=== PATIENT | female | born 1945 | race Caucasian/White ===

== ENCOUNTER 2019-09-10 21:17 | Inpatient (IN) | payer MEDICARE, MEDICAID, SELFPAY ==
[2019-09-11] VITALS (11 sets, daily range): BP systolic 96–138; BP diastolic 48–69; PULSE 84–111; RESP 16–22; TEMP 36.4–37.3; O2SAT 91–98; BMI 32.3
--- NOTE | 2019-09-11 01:44 | ECG_ITS ---
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
[2019-09-11 01:56] LABS: Add RBC Morph No
[2019-09-11 02:03] LABS: Basophils % 0.1 %; Hematocrit 35.1 % (37.0-47.0); Hemoglobin 11.3 g/dL (11.5-15.3); Lymphocytes # 0.4 10^3/uL (0.8-4.8); Lymphocytes % 2.6 %; Mean Corpuscular HGB Conc 32.2 g/dL (30.0-36.0); Mean Corpuscular Hemoglobin 27.5 pg (28.0-34.0); Mean Corpuscular Volume 85.4 fL (81-99); Mean Platelet Volume 10.5 fL (7.4-10.4); Monocytes # 0.5 10^3/uL (0.2-0.9); Monocytes % 3.1 %; Neutrophils # 14.2 10^3/uL (1.8-7.7); Neutrophils % 92.1 %; Nucleated Red Blood Cells % 0 %; Platelet Count 168 10^3/cmm (130-400); Red Blood Count 4.11 10^6/uL (4.1-5.3); Red Cell Distribution Width 15.2 % (12.1-15.1); White Blood Count 15.4 10^3/uL (4.0-10.0)
[2019-09-11 02:13] LABS: INR 1.71 (0.8-1.2)
[2019-09-11 02:21] LABS: Anion Gap 16.2 (5-19); Blood Urea Nitrogen 24 mg/dL (8-23); Calcium 9.3 mg/Dl (8.8-10.2); Carbon Dioxide 23 mmol/L (22-29); Chloride 99 mmol/L (98-107); Potassium 3.2 mmol/L (3.5-5.1); Sodium 135 mmol/L (136-145)
[2019-09-11] MEDS: sodium chlor 0.9% + KCl 20 mEq 20 MEQ/1,000 ML BAG 30 MEQ IV (02:21)
[2019-09-11 02:23] LABS: Troponin T (5th) Once 22 ng/mL (0-10)
[2019-09-11] MEDS: cefTRIAXone 1,000 MG in sodium chloride 0.9% (plus) 50 ML 100 MG IV (02:31)
[2019-09-11 02:38] LABS: Glucose 228 mg/dL (74-106)
[2019-09-11 02:40] LABS: Slide Review Slide Review Perform
[2019-09-11 02:49] LABS: Lactic Acid 2.7 mmol/L (0.5-2.2)
[2019-09-11 06:09] LABS: ABG PCO2 40.9 mmHg (35-45); ABG PH Result 7.41 (7.35-7.45); Arterial Blood Gas Hematocrit 36.1 % (37-47); Base Excess ABG 1.2 mmol/L (-2.0-2.0); Blood Gas Allen Test Pos; Blood Gas Sample Site Radial, right; Blood Gas Sample Type Arterial; PO2 ABG 84.5 mmHg (80.0-100.0)
--- NOTE | 2019-09-11 07:00 | USCV_ITS ---
Wanda Santiago Exam Date: 09/11/2019 08:52 Ordering Phys: Zoë Colon MD Ag 74 Gender: F Exam Location: [facility] [place] Technologist: Yeni Steele ms e: Indication: PE HISTORY: History DVT left popliteal/peroneal according to patient PROCEDURES: Bilaterally, the common femoral, superficial femoral, profunda femoral, popliteal, posterior tibial, greater saphenous veins, and the peroneal trunk were identified and interrogated in the sta ndard fashion. FINDINGS: ? chronic non obstructive thrombus in left popliteal and peroneal. All vessels com press normally with normal augmentation. CONCLUSIONS No evidence of acute left lower extremity DVT. Evidence of chronic non-obstructive thrombus left popliteal and peroneal No evidence of right lower extremity DVT. Ian Briseno MD (Electronically Signed) Final Date: 11 September 2019 10:59 S
[2019-09-11] MEDS: predniSONE 20 mg Tablet 40 MG PO (08:13)
[2019-09-11] MEDS: azithromycin 250 mg Tablet 500 MG PO (08:13)
[2019-09-11] MEDS: apixaban 5 mg Tablet 10 MG PO ×2 (08:13→17:21)
[2019-09-11] MEDS: metoprolol tartrate 50 mg Tablet PO ×2 (08:17→17:21)
[2019-09-11] MEDS: ipratropium-albuterol 3 mL Neb INHALATION ×4 (08:57→20:24)
--- NOTE | 2019-09-11 09:30 | PC.PHAR ---
VERBAL ORDER PER Pinky LEIVA TO CHANGE NEURONTIN 50MG BID TO 100MG BID
[2019-09-11 12:31] LABS: Glucose Point of Care 202 mg/dL (70-110)
[2019-09-11 12:44] LABS: Oxygen Device NC
[2019-09-11 12:45] LABS: Blood Gas Drawn By VOSSA
--- NOTE | 2019-09-11 16:45 | PM.PN ---
Subjective Subjective: Interval history: Wanda reports she is feeling much better than she was on admission. She reports she is less short of breath. Her history and physical was reviewed in detail. Vitals/I&O/Wt Last Vital Signs Temp 98.4 F 09/11/19 15:44 Pulse 88 09/11/19 15:44 Resp 18 09/11/19 15:44 BP 110/68 09/11/19 15:44 Pulse Ox 98 09/11/19 15:44 09/11/19 09/11/19 09/11/19 06:59 14:59 22:59 Intake Total 158 / 158 360 / 360 Balance 158 / 158 360 / 360 Weight last 48 hrs Weight 85.502 kg Weight 85.502 kg Physical Exam Narrative: EXAM NARRATIVE: General exam is a frail-appearing white female in no apparent distress Cardiovascular regular in rhythm without murmur Lungs bilateral diffuse expiratory wheezes Abdomen protuberant obese with positive bowel sounds Extremities trace edema bilaterally. Data Labs: Other Labs: All Labs last 24 hrs except CBC/BMP 09/10/19 09/10/19 09/10/19 19:47 19:47 19:47 RBC 4.96 MCV 82.3 MCH 26.6 L MCHC 32.4 RDW 15.2 H MPV 11.6 H Neut % (Auto) 92.2 Lymph % (Auto) 2.9 [place] % (Auto) 3.5 Eos % (Auto) 0.1 Baso % (Auto) 0.1 Neut # (Auto) 16.1 H Lymph # (Auto) 0.5 L [place] # (Auto) 0.6 Eos # (Auto) 0.0 Baso # (Auto) 0.0 Nucleated RBC % (a uto) 0 Nucleated RBCs # 0.0 PT INR Specimen Type Sample Site ABG pH ABG pCO2 ABG pO2 ABG HCO3 ABG Base Excess Sushil Test Hematocrit O2 Delivery Device O2 Liters/Min Specimen Drawn By Lay Out Worker ID POC Glucose Random Glucose 165 H Lactic Acid 3.1 H Calcium 10.3 H Total Bilirubin 2.0 H AST 24 ALT 14 Alkaline Phosphata se 80 Troponin T Gen 5 n g/L Troponin T Baselin e 28.63 H NT-Pro-B Natriuret Pep 1613 H Total Protein 8.1 Albumin 4.0 Globulin 4.1 Lipase 6 L Urine Color Urine Appearance Urine pH Ur Specific Gravit y Urine Protein Urine Glucose (UA) Urine Ketones Urine Occult Blood Urine Nitrite Urine Bilirubin Urine Urobilinogen Ur Leukocyte Liliya ase Urine RBC Urine WBC Ur Squamous Epith Cells Amorphous Sediment Urine Bacteria Fine Granular Cast s Influenza Type A A g Influenza Type B A g 09/10/19 09/10/19 09/10/19 19:47 20:05 21:24 RBC MCV MCH MCHC RDW MPV Neut % (Auto) Lymph % (Auto) [place] % (Auto) Eos % (Auto) Baso % (Auto) Neut # (Auto) Lymph # (Auto) [place] # (Auto) Eos # (Auto) Baso # (Auto) Nucleated RBC % (a uto) Nucleated RBCs # PT 18.8 H INR 1.52 H Specimen Type Sample Site ABG pH ABG pCO2 ABG pO2 ABG HCO3 ABG Base Excess Sushil Test Hematocrit O2 Delivery Device O2 Liters/Min Specimen Drawn By Lay Out Worker ID POC Glucose Random Glucose Lactic Acid Calcium Total Bilirubin AST ALT Alkaline Phosphata se Troponin T Gen 5 n g/L Troponin T Baselin e NT-Pro-B Natriuret Pep Total Protein Albumin Globulin Lipase Urine Color DARK YELLOW Urine Appearance HAZY Urine pH 5 Ur Specific Gravit y 1.020 Urine Protein 1+ H Urine Glucose (UA) NORM Urine Ketones 1+ H Urine Occult Blood 3+ H Urine Nitrite NEG Urine Bilirubin 1+ H Urine Urobilinogen 1 H Ur Leukocyte Liliya ase NEG Urine RBC 15-25 H Urine WBC 0-4 H Ur Squamous Epith Cells 10-15 H Amorphous Sediment 1+ Urine Bacteria 2+ H Fine Granular Cast s 0-4 H Influenza Type A A g NEGATIVE Influenza Type B A g NEGATIVE 09/11/19 09/11/19 09/11/19 01:50 01:50 01:50 RBC 4.11 MCV 85.4 MCH 27.5 L MCHC 32.2 RDW 15.2 H MPV 10.5 H Neut % (Auto) 92.1 Lymph % (Auto) 2.6 [place] % (Auto) 3.1 Eos % (Auto) Baso % (Auto) 0.1 Neut # (Auto) 14.2 H Lymph # (Auto) 0.4 L [place] # (Auto) 0.5 Eos # (Auto) 0.0 Baso # (Auto) 0.0 Nucleated RBC % (a uto) 0 Nucleated RBCs # 0.0 PT INR Specimen Type Sample Site ABG pH ABG pCO2 ABG pO2 ABG HCO3 ABG Base Excess Sushil Test Hematocrit O2 Delivery Device O2 Liters/Min Specimen Drawn By Lay Out Worker ID POC Glucose Random Glucose Lactic Acid Calcium 9.3 Total Bilirubin AST ALT Alkaline Phosphata se Troponin T Gen 5 n g/L 22 H Troponin T Baselin e NT-Pro-B Natriuret Pep Total Protein Albumin Globulin Lipase Urine Color Urine Appearance Urine pH Ur Specific Gravit y Urine Protein Urine Glucose (UA) Urine Ketones Urine Occult Blood Urine Nitrite Urine Bilirubin Urine Urobilinogen Ur Leukocyte Liliya ase Urine RBC Urine WBC Ur Squamous Epith Cells Amorphous Sediment Urine Bacteria Fine Granular Cast s Influenza Type A A g Influenza Type B A g 09/11/19 09/11/19 09/11/19 01:50 01:50 05:56 RBC MCV MCH MCHC RDW MPV Neut % (Auto) Lymph % (Auto) [place] % (Auto) Eos % (Auto) Baso % (Auto) Neut # (Auto) Lymph # (Auto) [place] # (Auto) Eos # (Auto) Baso # (Auto) Nucleated RBC % (a uto) Nucleated RBCs # PT 20.70 H INR 1.71 H Specimen Type Arterial Sample Site Radial, right ABG pH 7.41 ABG pCO2 40.9 ABG pO2 84.5 ABG HCO3 26.0 ABG Base Excess 1.2 Sushil Test Pos Hematocrit 36.1 L O2 Delivery Device Nc O2 Liters/Min 6.0 Specimen Drawn By Vossa Lay Out Worker ID vossa POC Glucose Random Glucose Lactic Acid 2.7 H Calcium Total Bilirubin AST ALT Alkaline Phosphata se Troponin T Gen 5 n g/L Troponin T Baselin e NT-Pro-B Natriuret Pep Total Protein Albumin Globulin Lipase Urine Color Urine Appearance Urine pH Ur Specific Gravit y Urine Protein Urine Glucose (UA) Urine Ketones Urine Occult Blood Urine Nitrite Urine Bilirubin Urine Urobilinogen Ur Leukocyte Liliya ase Urine RBC Urine WBC Ur Squamous Epith Cells Amorphous Sediment Urine Bacteria Fine Granular Cast s Influenza Type A A g Influenza Type B A g 09/11/19 11:29 RBC MCV MCH MCHC RDW MPV Neut % (Auto) Lymph % (Auto) [place] % (Auto) Eos % (Auto) Baso % (Auto) Neut # (Auto) Lymph # (Auto) [place] # (Auto) Eos # (Auto) Baso # (Auto) Nucleated RBC % (a uto) Nucleated RBCs # PT INR Specimen Type Sample Site ABG pH ABG pCO2 ABG pO2 ABG HCO3 ABG Base Excess Sushil Test Hematocrit O2 Delivery Device O2 Liters/Min Specimen Drawn By Lay Out Worker ID POC Glucose 202 Random Glucose Lactic Acid Calcium Total Bilirubin AST ALT Alkaline Phosphata se Troponin T Gen 5 n g/L Troponin T Baselin e NT-Pro-B Natriuret Pep Total Protein Albumin Globulin Lipase Urine Color Urine Appearance Urine pH Ur Specific Gravit y Urine Protein Urine Glucose (UA) Urine Ketones Urine Occult Blood Urine Nitrite Urine Bilirubin Urine Urobilinogen Ur Leukocyte Liliya ase Urine RBC Urine WBC Ur Squamous Epith Cells Amorphous Sediment Urine Bacteria Fine Granular Cast s Influenza Type A A g Influenza Type B A g A&P Assessment and plan (1) COPD with acute exacerbation: Patient already improving. On steroids, pulmonary toilet, IV antibiotics. Possibility of pneumonia exists. Status: Acute Code(s): J44.1 - Chronic obstructive pulmonary disease with (acute) exacerbation (2) Sepsis: Status: Ruled-out Code(s): A41.9 - Sepsis, unspecified organism (3) Pulmonary embolism: Coumadin discontinued. Placed on Eliquis, treatment dose Status: Acute Code(s): I26.99 - Other pulmonary embolism without acute cor pulmonale (4) Hypertension: Stable Status: Acute Code(s): I10 - Essential (primary) hypertension (5) Hypokalemia: Supplemented this morning Status: Acute Code(s): E87.6 - Hypokalemia Attestations Medical Necessity Statement*: Needs continued hospitalization secondary to COPD exacerbation requiring steroids, pulmonary toilet, IV antibiotics Coding Level of Care Code Acute Manager Track for [facility] F[facility] Diagnoses COPD with acute exacerbation J44.1 Sepsis A41.9 Pulmonary embolism I26.99 Hypertension I10 Hypokalemia E87.6
[2019-09-11] MEDS: gabapentin 100 mg Capsule PO (17:21)
[2019-09-11 17:54] LABS: Glucose Point of Care 221 mg/dL (70-110)
[2019-09-11 21:44] LABS: Glucose Point of Care 186 mg/dL (70-110)
[2019-09-11] MEDS: atorvastatin 40 mg Tablet PO (21:45)
[2019-09-12] VITALS (14 sets, daily range): BP systolic 100–142; BP diastolic 63–73; PULSE 73–102; RESP 16–24; TEMP 36.3–36.9; O2SAT 92–98
[2019-09-12] MEDS: cefTRIAXone 1,000 MG in sodium chloride 0.9% (plus) 50 ML 100 MG IV (00:45)
[2019-09-12] MEDS: ipratropium-albuterol 3 mL Neb INHALATION ×3 (01:54→20:49)
[2019-09-12] MEDS: sodium chlor 0.9% + KCl 20 mEq 20 MEQ/1,000 ML BAG 30 MEQ IV (02:17)
[2019-09-12 05:44] LABS: Basophils % 0.1 %; Hematocrit 34.3 % (37.0-47.0); Hemoglobin 10.8 g/dL (11.5-15.3); Lymphocytes # 0.5 10^3/uL (0.8-4.8); Lymphocytes % 3.6 %; Mean Corpuscular HGB Conc 31.5 g/dL (30.0-36.0); Mean Corpuscular Hemoglobin 27.1 pg (28.0-34.0); Mean Corpuscular Volume 86.2 fL (81-99); Mean Platelet Volume 11.5 fL (7.4-10.4); Monocytes # 0.7 10^3/uL (0.2-0.9); Monocytes % 4.8 %; Neutrophils # 12.8 10^3/uL (1.8-7.7); Nucleated Red Blood Cells % 0 %; Platelet Count 181 10^3/cmm (130-400); Red Blood Count 3.98 10^6/uL (4.1-5.3); Red Cell Distribution Width 15.1 % (12.1-15.1); White Blood Count 14.3 10^3/uL (4.0-10.0)
[2019-09-12 05:46] LABS: Add RBC Morph No
[2019-09-12 06:10] LABS: Blood Urea Nitrogen 36 mg/dL (8-23); Calcium 9.4 mg/Dl (8.8-10.2); Carbon Dioxide 24 mmol/L (22-29); Chloride 102 mmol/L (98-107); Glucose 166 mg/dL (74-106); Sodium 139 mmol/L (136-145)
[2019-09-12 06:52] LABS: Glucose Point of Care 168 mg/dL (70-110)
[2019-09-12] MEDS: gabapentin 100 mg Capsule PO ×2 (08:31→18:03)
[2019-09-12] MEDS: apixaban 5 mg Tablet 10 MG PO ×2 (08:31→18:03)
[2019-09-12] MEDS: metoprolol tartrate 50 mg Tablet PO ×2 (08:32→18:03)
[2019-09-12] MEDS: azithromycin 250 mg Tablet 500 MG PO (08:32)
[2019-09-12] MEDS: predniSONE 20 mg Tablet 40 MG PO (08:32)
[2019-09-12 11:09] LABS: Glucose Point of Care 182 mg/dL (70-110)
--- NOTE | 2019-09-12 11:20 | P.PN_ITS ---
Subjective Subjective: Interval history: Wanda reports she is feeling better. She is still wheezing some. No vomiting. No chest pain. Overall improving. Medications: Reviewed: Yes Vitals/I&O/Wt Last Vital Signs Temp 97.7 F 09/12/19 11:13 Pulse 74 09/12/19 11:13 Resp 22 H 09/12/19 11:13 BP 113/70 09/12/19 11:13 Pulse Ox 96 09/12/19 11:13 09/11/19 09/12/19 09/12/19 22:59 06:59 14:59 Intake Total 981 / 1341 480 / 480 Output Total 350 / 350 Balance 631 / 991 480 / 480 Weight last 48 hrs Weight 89.539 kg Weight 89.04 kg Weight 85.502 kg Weight 85.502 kg Physical Exam Narrative: EXAM NARRATIVE: General exam no apparent distress Cardiovascular regular rate and rhythm without murmur Lungs diminished breath sounds bilaterally. No wheezes or crackles Abdomen is soft with positive bowel sounds Extremities no cyanosis clubbing or edema. A&P Assessment and plan (1) COPD with acute exacerbation: Patient already improving. On steroids, pulmonary toilet, IV antibiotics. Possibility of pneumonia exists. Continues to improve. Continue IV antibiotics. Wean oxygen as tolerated. Status: Acute Code(s): J44.1 - Chronic obstructive pulmonary disease with (acute) exacerbation (2) Sepsis: Resolved. White blood cell count improved Status: Ruled-out Code(s): A41.9 - Sepsis, unspecified organism (3) Pulmonary embolism: Coumadin discontinued. Placed on Eliquis, treatment dose. She appears stable Status: Acute Code(s): I26.99 - Other pulmonary embolism without acute cor pulmonale (4) Hypertension: Stable Status: Acute Code(s): I10 - Essential (primary) hypertension (5) Hypokalemia: Normal this morning Status: Acute Code(s): E87.6 - Hypokalemia Attestations Medical Necessity Statement*: Needs continued hospital stay for pulmonary toilet, frequent nebs. Likely discharge tomorrow. Coding Level of Care Code Acute Configuration Consultant for [facility] Diagnoses COPD with acute exacerbation J44.1 Sepsis A41.9 Pulmonary embolism I26.99 Hypertension I10 Hypokalemia E87.6
[2019-09-12] MEDS: FUROsemide 40 mg Tablet PO (13:37)
[2019-09-12 16:21] LABS: Glucose Point of Care 183 mg/dL (70-110)
[2019-09-12] MEDS: atorvastatin 40 mg Tablet PO (20:53)
[2019-09-12 21:07] LABS: Glucose Point of Care 187 mg/dL (70-110)
[2019-09-13] VITALS (13 sets, daily range): BP systolic 118–149; BP diastolic 69–79; PULSE 75–87; RESP 16–24; TEMP 36.4–36.6; O2SAT 92–97
[2019-09-13] MEDS: ipratropium-albuterol 3 mL Neb INHALATION ×4 (00:47→10:44)
[2019-09-13] MEDS: cefTRIAXone 1,000 MG in sodium chloride 0.9% (plus) 50 ML 100 MG IV (04:28)
[2019-09-13 07:47] LABS: Anion Gap 12.4 (5-19); Blood Urea Nitrogen 29 mg/dL (8-23); Calcium 9.2 mg/Dl (8.8-10.2); Carbon Dioxide 24 mmol/L (22-29); Chloride 106 mmol/L (98-107); Glucose 135 mg/dL (74-106); Potassium 3.4 mmol/L (3.5-5.1); Sodium 139 mmol/L (136-145)
[2019-09-13 08:55] LABS: Glucose Point of Care 136 mg/dL (70-110)
[2019-09-13] MEDS: apixaban 5 mg Tablet 10 MG PO (09:38)
[2019-09-13] MEDS: FUROsemide 40 mg Tablet PO (09:38)
[2019-09-13] MEDS: gabapentin 100 mg Capsule PO (09:38)
[2019-09-13] MEDS: azithromycin 250 mg Tablet 500 MG PO (09:38)
[2019-09-13] MEDS: metoprolol tartrate 50 mg Tablet PO (09:39)
[2019-09-13] MEDS: predniSONE 20 mg Tablet 40 MG PO (09:39)
--- NOTE | 2019-09-13 10:27 | P.DS_ITS ---
Discharge Providers Date of Admission: 09/10/19 21:17 Date of Discharge: 09/13/19 Attending Provider at Admission: Antoinette Colon MD Attending Provider at Discharge: Brooks Vargas MD Primary Care Provider: Carmella Navarrete-Philomena Diagnoses at Discharge Discharge Diagnosis (1) COPD with acute exacerbation: Status: Acute Problem details: Significantly improved. Back to baseline home oxygen (2) Sepsis: Status: Ruled-out (3) Pulmonary embolism: Status: Acute Problem details: Discontinued Coumadin. She was not therapeutic. On Eliquis, treatment dose to transition to appropriate maintenance dose (4) Hypertension: Status: Acute Problem details: Controlled (5) Hypokalemia: Status: Acute Problem details: Supplemented Reason for Visit Reason for Visit: Reason For Visit: Acute On Chronic Resp Distress, Copd, Hospital Course Hospital Course: Wanda presented to the hospital short of breath. She was found to have an acute COPD exacerbation. CTA of her lungs also demonstrated pulmonary embolism. She was not therapeutic on her Coumadin when she came in. There was question of pneumonia as well. She was placed on IV antibiotics consisting of Rocephin and azithromycin. Coumadin was discontinued and she was placed on Eliquis treatment dose. She was given steroids, and pulmonary toilet. Over the course of her hospital stay she remained afebrile. She gradually improved and oxygen weaned down to her baseline. By time of discharge she reported her breathing was back to baseline. Physical Exam Narrative: EXAM NARRATIVE: General exam no apparent distress Cardiovascular regular in rhythm without murmur Lungs a few faint expiratory wheezes Abdomen is soft with positive bowel sounds Extremities no cyanosis clubbing or edema Discharge Data Data Completed and Pending: Completed Studies During Hospitalization Category [place] [id number] Routin e Ultrasound 09/11/19 07:00 Completed Pending at discharge Category Date Time Status CV echo complete* [id number] Routine Ultrasound 09/11/19 07:00 Taken Labs from last 24 hours 09/13/19 09/13/19 09/12/19 07:12 06:26 21:03 Sodium 139 Potassium 3.4 L Chloride 106 Carbon Dioxide 24 Anion Gap 12.4 BUN 29 H Creatinine 1.3 H Glucose 135 H POC Glucose 136 187 Calcium 9.2 09/12/19 09/12/19 16:06 11:02 Sodium Potassium Chloride Carbon Dioxide Anion Gap BUN Creatinine Glucose POC Glucose 183 182 Calcium Vitals: Last Vital Signs Temp 97.6 F 09/13/19 07:32 Pulse 85 09/13/19 07:32 Resp 18 09/13/19 07:32 BP 118/69 09/13/19 07:32 Pulse Ox 96 09/13/19 07:32 Discharge Plan Discharge Patient Disposition: Home Health Service Condition: Stable Prescriptions: New Eliquis 5 mg Tablet 10 mg PO BID Qty: 70 RF: 0 prednisone 20 mg Tablet 40 mg PO DAILY Qty: 6 RF: 0 cefuroxime axetil 500 mg tablet 500 mg PO BID 7 Days Qty: 14 RF: 0 fluticasone propion-salmeterol [Advair Diskus] 500-50 mcg/dose blister with device 1 inh INHALATION BID Qty: 60 RF: 0 ipratropium-albuterol 0.5 mg-3 mg(2.5 mg base)/3 mL solution for nebulization 3 ml INHALATION Q6H PRN (Reason: shortness of breath or wheezing) Qty: 180 RF: 0 Continued Vitamin D2 1.25 MG tablet 1.25 mg PO DAILY RF: 0 atorvastatin 40 mg Tablet 40 mg PO DAILY RF: 0 furosemide 40 mg Tablet 40 mg PO DAILY RF: 0 gabapentin 100 mg Capsule 100 mg PO TID RF: 0 fluticasone propionate 50 mcg/actuation [place],Suspension 2 spray INTRANASAL DAILY RF: 0 metoprolol tartrate 50 mg Tablet 50 mg PO DAILY RF: 0 Discontinued warfarin 4 mg Tablet 4 mg PO QMWF RF: 0 warfarin 2 mg Tablet 2 mg PO [id number] RF: 0 Discharge Orders: Discharge Order (Routine); Ordered 09/13/19 Ordered By: Brooks Vargas Referrals: Carmella Navarrete FNP-C [Primary Care Provider] - 4-7 days Discharge Diet: Cardiac Discharge Activity: Resume usual activity Activity Restrictions/Additional Instructions: Resume your usual home oxygen at 3 L. Visit with your primary care provider Monday or Monday. Note that your Eliquis dose is 10 mg twice daily for 5 days and then reduce dose to 5 mg twice daily. Discharge Attestations Time Spent in Discharge Care*: greater than 30 min Quality Metrics Clinical Quality Measures During this hospital stay, did patient experience: VTE Contraindication to Overlap Therapy: Overlap treatment not indicated VTE Discharge Education: Education about treatment options/disease process Coding Level of Care Code Acute Division Roadmaster for [facility] Diagnoses COPD with acute exacerbation J44.1 Sepsis A41.9 Pulmonary embolism I26.99 Hypertension I10 Hypokalemia E87.6
[2019-09-13 11:25] LABS: Glucose Point of Care 151 mg/dL (70-110)
== END 2019-09-13 12:24 | disposition home health service (06) | DRG 190 ==
PROVIDERS: Admitting Provider Internal Medicine; Emergency Provider Emergency Medicine; Family Provider Nurse Practitioner Family; PCP Nurse Practitioner Family; Visit Provider Internal Medicine
DX: J44.1 Chronic obstructive pulmonary disease with (acute) exacerbation (principal); I26.99 Other pulmonary embolism without acute cor pulmonale; J96.01 Acute respiratory failure with hypoxia; I82.532 Chronic embolism and thrombosis of left popliteal vein; J44.0 Chronic obstructive pulmonary disease with (acute) lower respiratory infection; Z99.81 Dependence on supplemental oxygen; I10 Essential (primary) hypertension; E78.5 Hyperlipidemia, unspecified; M47.9 Spondylosis, unspecified; Z87.891 Personal history of nicotine dependence; Z79.01 Long term (current) use of anticoagulants; Z66 Do not resuscitate; E87.6 Hypokalemia
CPT/HCPCS: 36415; 36416; 36600; 71045; 71275; 80048; 80053; 81001; 82962; 83605; 83690; 83880; 84484; 85025; 85610; 86403; 87040; 87449; 87804; 93005; 93306; 93970; 94640; 96361; 96365; 96366; 99284; J0696; J1200; J2543; J7512; Q0144; Q9967

== ENCOUNTER 2019-12-24 13:01 | Inpatient (IN) | payer MEDICARE, MEDICAID, SELFPAY ==
[2019-12-24] VITALS (8 sets, daily range): BP systolic 97–137; BP diastolic 54–72; PULSE 76–88; RESP 16–23; TEMP 36.7–36.9; O2SAT 92–96; BMI 28.6
--- NOTE | 2019-12-24 13:08 | W.ED.SOB ---
HPI - SOB/Dyspnea General: Chief Complaint: Shortness of Breath/Dyspnea Stated Complaint: SOB, POSS PNEUMONIA Time Seen by Provider: 12/24/19 13:07 History of Present Illness: HPI Narrative: Patient states that she has had a persistent nonproductive cough for several days. She had fever at home. States that when she awoke this morning she was having severe respiratory distress. Patient does have a history of COPD and is on oxygen 24/ at home. MD elicited complaint: shortness of breath and cough Pertinent past history: COPD Onset (ago): day(s) Timing: progressively worsening Severity: moderate Exacerbating factors: exertion and coughing Relieving factors: nothing Known history of: COPD Associated symptoms: Reports cough and fever(s) Treatment prior to arrival: oxygen Review of Systems General: Reports: 10 or more systems reviewed and unremarkable except in HPI and below Const: Reports: fever, chills, body aches, fatigue and malaise Resp: Reports: shortness of breath and non-productive cough PFS ED PFSH: Family History Family/Other CAD (coronary artery disease) Social History Smoking and tobacco status: former smoker Quit status (tobacco): has quit using tobacco Alcohol intake: never Lives independently: Yes Physical Exam Const: COMMON NORMALS: oriented x3 and alert Neck/C-Spine: COMMON NORMALS: full ROM, supple, no meningeal signs and no JVD Resp: EFFORT & INSPECTION: Yes able to speak in complete sentences AUSCULTATION: rhonchi, wheezes and diminished lung sounds Cardio: COMMON NORMALS: no JVD, regular rate and regular rhythm RATE: regular rate RHYTHM: regular rhythm GI: COMMON NORMALS: normal to inspection, nondistended, normoactive bowel sounds Extremity: COMMON NORMALS: normal to inspection, full ROM and no pedal edema Neuro: COMMON NORMALS: oriented x3 SENSORIUM/ORIENTATION: Yes alert MENINGEAL SIGNS: Yes no meningeal signs Course Vital Signs: Vital signs: Vital Signs Temperature 98.4 F 12/24/19 13:04 Pulse Rate 83 12/24/19 14:11 Respiratory Rate 16 12/24/19 14:11 Blood Pressure 101/66 12/24/19 13:04 Pulse Oximetry 93 04/14/20 14:11 MDM - SOB/Dyspnea Lab Data: Labs: Lab Results 12/24/19 12/24/19 12/24/19 Range/Units 13:22 13:22 13:22 WBC 9.6 (4.0-10.0) 10^3/ uL RBC 4.53 (4.1-5.3) 10^6/u L Hgb 12.0 (11.5-15.3) g/dL Hct 37.9 (37.0-47.0) % MCV 83.7 (81-99) fL MCH 26.5 L (28.0-34.0) pg MCHC 31.7 (30.0-36.0) g/dL RDW 14.6 (12.1-15.1) % Plt Count 216 (130-400) 10^3/c mm MPV 11.2 H (7.4-10.4) fL Neut % (Auto) 87.9 % Lymph % (Auto) 2.9 % [place] % (Auto) 7.7 % Eos % (Auto) 0.8 % Baso % (Auto) 0.2 % Neut # (Auto) 8.5 H (1.8-7.7) 10^3/u L Lymph # (Auto) 0.3 L (0.8-4.8) 10^3/u L [place] # (Auto) 0.7 (0.2-0.9) 10^3/u L Eos # (Auto) 0.1 (0.0-0.8) 10^3/u L Baso # (Auto) 0.0 (0.0-0.1) 10^3/u L Nucleated RBC % (a uto) 0 % Nucleated RBCs # 0.0 /100WBC Sodium 140 (136-145) mmol/L Potassium 3.2 L (3.5-5.1) mmol/L Chloride 95 L (98-107) mmol/L Carbon Dioxide 30 H (22-29) mmol/L Anion Gap 18.2 (5-19) BUN 11 (8-23) mg/dL Creatinine 1.2 H (0.5-0.9) mg/dL Glucose 164 H (65-115) mg/dL Calculated Osmolal ity 290 (285-295) mOsm/k g Calcium 10.0 (8.5-10.5) mg/dL Total Bilirubin 1.1 (0.15-1.2) mg/dL AST 16 (0-32) U/L ALT 11 (0-33) U/L Alkaline Phosphata se 87 (35-105) IU/L Troponin T Baselin e 20 H (0-10) ng/mL NT-Pro-B Natriuret Pep 204 (0-450) pg/mL Total Protein 7.7 (6.6-8.7) g/dL Albumin 4.0 (3.5-5.2) g/dL Globulin 3.7 (1.3-4.6) g/dL Influenza Type A A g (Negative) Influenza Type B A g (Negative) 12/24/19 Range/Units 13:53 WBC (4.0-10.0) 10^3/ uL RBC (4.1-5.3) 10^6/u L Hgb (11.5-15.3) g/dL Hct (37.0-47.0) % MCV (81-99) fL MCH (28.0-34.0) pg MCHC (30.0-36.0) g/dL RDW (12.1-15.1) % Plt Count (130-400) 10^3/c mm MPV (7.4-10.4) fL Neut % (Auto) % Lymph % (Auto) % [place] % (Auto) % Eos % (Auto) % Baso % (Auto) % Neut # (Auto) (1.8-7.7) 10^3/u L Lymph # (Auto) (0.8-4.8) 10^3/u L [place] # (Auto) (0.2-0.9) 10^3/u L Eos # (Auto) (0.0-0.8) 10^3/u L Baso # (Auto) (0.0-0.1) 10^3/u L Nucleated RBC % (a uto) % Nucleated RBCs # /100WBC Sodium (136-145) mmol/L Potassium (3.5-5.1) mmol/L Chloride (98-107) mmol/L Carbon Dioxide (22-29) mmol/L Anion Gap (5-19) BUN (8-23) mg/dL Creatinine (0.5-0.9) mg/dL Glucose (65-115) mg/dL Calculated Osmolal ity (285-295) mOsm/k g Calcium (8.5-10.5) mg/dL Total Bilirubin (0.15-1.2) mg/dL AST (0-32) U/L ALT (0-33) U/L Alkaline Phosphata se (35-105) IU/L Troponin T Baselin e (0-10) ng/mL NT-Pro-B Natriuret Pep (0-450) pg/mL Total Protein (6.6-8.7) g/dL Albumin (3.5-5.2) g/dL Globulin (1.3-4.6) g/dL Influenza Type A A g Negative (Negative) Influenza Type B A g Negative (Negative) Imaging Data^: CXR: Radiologist's impression: Discharge Plan Discharge Patient Disposition: Admitted As Inpatient Clinical Impression: Acute exacerbation of chronic obstructive airways disease, Pneumonitis Community acquired pneumonia Qualifiers: Laterality: unspecified laterality Qualified Code(s): J18.9 - Pneumonia, unspecified organism Condition: Fair Referrals: Carmella Navarrete, INTERNAL CONTROLS SPECIALIST-C [Primary Care Provider] - Coding Level of Care Code ED Manager Valuation for [facility] Fwd Exam Detailed
--- NOTE | 2019-12-24 13:18 | XR_ITS ---
WS: [id number] PORTABLE CHEST HISTORY: dyspnea COMPARISON: 09/10/2019 Hyperinflated lungs. Dense calcification RIGHT upper lobe measures 2.9 x 2.1 cm. Increasing opacifica tion in the lower lung melvin bilaterally. Small LEFT pleural effusion. No pneumothorax. Cardiac size: Normal. Mediastinum/Aorta: Mild atherosclerosis aorta. No osseous abnormality seen. XR/XR chest 1V portable [id number] IMPRESSION: 1. Bilateral lower lobe edema versus pneumonitis. 2. Chronic emphysema. 3. Stable RIGHT upper lobe calcification.
[2019-12-24 13:34] LABS: Basophils % 0.2 %; Eosinophils # 0.1 10^3/uL (0.0-0.8); Eosinophils % 0.8 %; Hematocrit 37.9 % (37.0-47.0); Lymphocytes # 0.3 10^3/uL (0.8-4.8); Lymphocytes % 2.9 %; Mean Corpuscular HGB Conc 31.7 g/dL (30.0-36.0); Mean Corpuscular Hemoglobin 26.5 pg (28.0-34.0); Mean Corpuscular Volume 83.7 fL (81-99); Mean Platelet Volume 11.2 fL (7.4-10.4); Monocytes # 0.7 10^3/uL (0.2-0.9); Monocytes % 7.7 %; Neutrophils # 8.5 10^3/uL (1.8-7.7); Neutrophils % 87.9 %; Nucleated Red Blood Cells % 0 %; Platelet Count 216 10^3/cmm (130-400); Red Blood Count 4.53 10^6/uL (4.1-5.3); Red Cell Distribution Width 14.6 % (12.1-15.1); White Blood Count 9.6 10^3/uL (4.0-10.0)
[2019-12-24 13:58] LABS: Troponin(5th) Baseline 20 ng/mL (0-10)
[2019-12-24] MEDS: sodium chloride 0.9% 500 ML 999 ML IV (14:00)
[2019-12-24 14:07] LABS: Alanine Aminotransferase 11 U/L (0-33); Alkaline Phosphatase 87 IU/L (35-105); Anion Gap 18.2 (5-19); Aspartate Amino Transferase 16 U/L (0-32); Blood Urea Nitrogen 11 mg/dL (8-23); Carbon Dioxide 30 mmol/L (22-29); Chloride 95 mmol/L (98-107); Globulin 3.7 g/dL (1.3-4.6); Glucose 164 mg/dL (65-115); NT Pro B Type Natriuretic Pept 204 pg/mL (0-450); Osmolality Calculated 290 mOsm/kg (285-295); Potassium 3.2 mmol/L (3.5-5.1); Sodium 140 mmol/L (136-145); Total Bilirubin 1.1 mg/dL (0.15-1.2); Total Protein 7.7 g/dL (6.6-8.7)
[2019-12-24] MEDS: cefTRIAXone 1,000 MG in sodium chloride 0.9% (plus) 50 ML 100 MG IV (14:23)
[2019-12-24 14:54] LABS: Influenza A by IFA Negative (Negative); Influenza B by IFA Negative (Negative)
[2019-12-24] MEDS: azithromycin 500 MG in sodium chloride 0.9% 250 ML 250 MG IV (15:04)
--- NOTE | 2019-12-24 15:19 | ECG_ITS ---
Measurements Intervals [place] Rate: 80 P: 13 IN: 172 QRS: 5 QRSD: 91 T: 52 QT: 385 QTc: 447 SINUS RHYTHM Compared to ECG 09/11/2019 10:52:24 Sinus tachycardia no longer present Myocardial infarct finding no longer present Electronically Signed On 12-24-2019 19:43:00 CDT by Anca Gill M.D. [email or web address]
[2019-12-24 15:54] LABS: Troponin 5 2HR 21.58 ng/mL (0-10); Troponin 5 2HR Delta 1.58 ABS# (0-10)
--- NOTE | 2019-12-24 16:03 | PM.HP ---
Providers/Chief Complaint Primary Care Provider: Carmella Navarrete AUTHORIZATION NURSE-C Chief Complaint: SOB, POSS PNEUMONIA History of Present Illness Wanda Santiago is a 74 year old female with past medical history of COPD with low DLCO on chronic 3 L oxygen supplementation, hypertension, hyperlipidemia, recurrent DVTs, Coumadin failure, pulmonary embolism now on Eliquis presented to the ER today complaining of shortness of breath which is been increasing for last 3 days. He presented to the ER today because her shortness of breath has been increasing and today morning she was not able to catch her breath and had to increase her oxygen supplementation to 5 to 6 L. She states she thinks that her congestion in her lungs have been building up for last 3 to 4 days and got worse overnight. Today morning of the first time she also noticed to have fever. T-max at home was 99.8 Fahrenheit. Shortness of breath associated with cough with increased expectoration since today morning. Expectoration is mostly yellowish colored not foul-smelling not bloodstained. She is also complaining of having runny nose and myalgias since last night. Symptoms are associated with pain on the right side of her chest on cough. She denies of having any headache, dizziness, abdominal pain, dysuria, diarrhea, palpitations, bleeding from any place, hemoptysis, anosmia. She does complain of having lower limb swelling on and off which seems to be at baseline and if not increasing recently. Patient lives by herself and has a home health who comes 3 times a week. She have not noticed her home health having any runny nose or flulike symptoms. She denies traveling outside [place] in last 3 months but does have her children come to her home at least 2-5 times a week who helps with her groceries. She states she is not aware if any of her children are having any flulike symptoms. Review of Systems Const: Reports: fever and body aches; Denies: chills, change in appetite, malaise, night sweats, diaphoresis, change in sleep pattern, daytime sleepiness or snoring Eyes: Denies: change in vision, blurry vision, photophobia, eye discomfort or eye discharge ENMT: Denies: throat pain, enlarged tonsils, hoarseness, mouth pain, oral sores/lesions, dry mouth, tinnitus, nasal congestion or post nasal drip Card: Reports: chest pain; Denies: palpitations, irregular heart rhythm, edema, swelling of feet/ankles, lightheadedness, syncope, pre-syncope, shortness of breath on exertion, shortness of breath when lying down, leg pain with exertion or bluish discoloration of hands/feet Resp: Reports: shortness of breath, productive cough and chest congestion; Denies: non-productive cough, wheezing, stridor, pain on inspiration, change in phlegm color or coughing up blood GI: Denies: abdominal pain, nausea, vomiting, vomiting blood, coffee grounds in vomit, difficulty swallowing, heartburn/indigestion, diarrhea, constipation, bloating, cramping, change in bowel habits, painful bowel movements, blood in stool or black tarry stool : Denies: flank pain, painful urination, urinary frequency, urinary urgency, urinary hesitancy, nighttime urination or blood in urine Musc: Denies: neck pain, back pain, extremity pain, joint pain, joint swelling, redness, joint stiffness or limited range of motion Neuro: Denies: headache, numbness in extremities, weakness in extremities, changes in sensation, lack of coordination, difficulty walking, frequent falls, dizziness, vertigo, confusion, slurred speech, difficulty communicating thoughts or seizure-like activity Psych: Denies: anxiety, depression, mood swings, panic attacks, hopelessness or irritability Endo: Denies: excessive urination, excessive thirst, tired all the time, cold intolerance, excessive sweating, flushing or heat intolerance Cale/Lymph: Denies: easy bruising or easy bleeding All/Imm: Denies: tongue swelling, facial swelling or acute wheezing Medications/Allergies Home Medications Medication Instructions Recorded Confirmed Last Taken Type apixaban [Eliquis] 5 mg PO BID 12/24/19 12/24/19 12/24/19 History hydroxyzine pamoate 50 mg PO QID PRN 12/24/19 12/24/19 Unknown History tiotropium bromide [Spiriva with 1 cap INHALATION DAILY 12/24/19 12/24/19 12/23/19 History HandiHaler] Allergies Allergy/AdvReac Type Severity Reaction Status Date / Time piperacillin [From Zosyn] Allergy Intermediate TURNED RED Verified 09/11/19 03:05 tazobactam [From Zosyn] Allergy Intermediate TURNED RED Verified 09/11/19 03:05 PFSH Acute PFSH: Medical History CKD (chronic kidney disease) COPD (chronic obstructive pulmonary disease) Coumadin resistance DVT (deep venous thrombosis) Neuropathy On home oxygen therapy Osteoarthritis Surgical History History of hysterectomy Family History Family/Other CAD (coronary artery disease) Social History Smoking and tobacco status: former smoker Quit status (tobacco): has quit using tobacco Alcohol intake: never Lives independently: Yes Vitals/I&O/Wt Last Vital Signs Temp 98.4 F 12/24/19 13:04 Pulse 83 12/24/19 15:34 Resp 18 12/24/19 15:34 BP 137/72 12/24/19 15:34 Pulse Ox 96 12/24/19 15:34 12/24/19 12/24/19 12/24/19 06:59 14:59 22:59 Intake Total 0 / 0 550 / 550 Balance 0 / 0 550 / 550 Weight last 48 hrs Weight 75.75 kg Physical Exam Narrative: EXAM NARRATIVE: General: No acute distress, AO x3 HEENT: PERRLA, pupils bilaterally equal and reactive Chest: Normal vesicular breath sounds, no added sounds, equal good air entry bilaterally CVS: S1-S2 regular, no murmurs, no tachycardia, no gallops, no rubs Abdomen: Soft, nontender, no organomegaly, bowel sounds present Neuro: No focal deficits, no facial deformity, AO x3, power 5/5 in all limbs Data : 12/24/19 13:22 12/24/19 13:22 Micro: Microbiology 12/24/19 14:17 Blood Culture - Preliminary Blood SPECIMEN COLLECTED 12/24/19 14:10 Blood Culture - Preliminary Blood SPECIMEN COLLECTED A&P Assessment and plan (1) Acute exacerbation of chronic obstructive airways disease: Status: Acute (2) Community acquired pneumonia: Status: Acute Qualifiers: Laterality: unspecified laterality Qualified Code(s): J18.9 - Pneumonia, unspecified organism (3) Suspected COVID-19 virus infection: Status: Acute (4) Pneumonitis: Status: Acute (5) Hypertension: Status: Acute (6) Pulmonary embolism: Status: Acute (7) Coumadin resistance: Status: Acute (8) CKD (chronic kidney disease): Status: Acute Additional A&P Information Acute hypoxic respiratory failure: Because of exacerbation of COPD along with community-acquired pneumonia: Check procalcitonin, LDH, ferritin, d-dimer, CRP,. As patient has exposure to healthcare nurse thrice a week along with her symptoms of respiratory distress and fever we cannot rule out COVID-19. So we will test. Isolation precautions till then. Check urine Legionella, bacterial antigen, sputum culture, blood culture. Patient was started on azithromycin and ceftriaxone in the ER. For now continue the same. We will hold off on steroids given the possibility of COVID-19. Start patient on duo nebs every 6 hourly and budesonide twice daily with inhalers. Oxygen supplementation keeping saturation over 90. Patient is euvolemic so we will hold off on home dose of Lasix for now. Gentle hydration of normal saline at 50 cc/h. Pulmonary embolism: Continue with home dose of Eliquis. Hypertension: For now patient's blood pressure are within normal limits so we will continue with home dose of metoprolol. Full code. Eliquis will work as DVT prophylaxis. Cardiac diet. We will change medication as per the clinical progress. Attestations Medical Necessity Statement*: > 2MN, for Pneumonitis, CAP Time Spent in Patient Care: Greater than 35 minutes Coding Level of Care Code Acute Prepleater for [facility] Diagnoses Acute exacerbation of chronic obstructive airways disease J44.1 Community acquired pneumonia J18.9 Laterality: unspecified laterality Suspected COVID-19 virus infection R68.89 Pneumonitis J18.9 Hypertension I10 Pulmonary embolism I26.99 Coumadin resistance D68.9; Z79.01 CKD (chronic kidney disease) N18.9
[2019-12-24 16:17] LABS: C Reactive Protein 24.8 mg/L (0.0-4.9); Ferritin 312 ng/mL (15-150); Lactate Dehydrogenase 226 U/L (135-214)
[2019-12-24 16:43] LABS: Iron 20 ug/dL (37-145); Percent Saturation 8.2 % (20-50); Total Iron Binding Capacity 242 mcg/dl; Unsaturated Iron Binding 222 ug/dL (112-347)
[2019-12-24] MEDS: sodium chloride 0.9% 1,000 ML 100 ML IV (17:14)
[2019-12-24] MEDS: apixaban 5 mg Tablet PO (17:14)
--- NOTE | 2019-12-24 19:19 | ECG_ITS ---
Measurements Intervals [place] Rate: 81 P: -4 MS: 192 QRS: -4 QRSD: 93 T: 20 QT: 359 QTc: [address] DEPRESSION [0.05+ mV ST DEPRESSION] Compared to ECG 09/11/2019 10:52:24 ST (T wave) deviation now present Sinus tachycardia no longer present Myocardial infarct finding no longer present Electronically Signed On 12-24-2019 19:53:07 CDT by Anca Gill M.D. [email or web address]
[2019-12-24 20:40] LABS: Troponin 5 6HR 19.48 ng/mL (0-10)
[2019-12-24 20:45] LABS: Troponin 5 6HR Delta -0.52 ng/L (0-12)
[2019-12-24] MEDS: gabapentin 100 mg Capsule PO (21:02)
[2019-12-24 21:12] LABS: Thyroid Stimulating Hormone 1.36 uIU/mL (0.27-4.20)
[2019-12-24] MEDS: ipratropium-albuterol 3 mL Neb INHALATION (21:12)
[2019-12-24] MEDS: budesonide 0.5 mg/2 mL Neb INHALATION (21:12)
[2019-12-24] MEDS: atorvastatin 40 mg Tablet PO (21:52)
[2019-12-24 23:01] LABS: Bacteria Urine TRACE; Bilirubin Urine Neg (NEGATIVE); Blood Urine Neg (Negative); Glucose Urine UA Norm (Normal); Ketones Urine Negative (Negative); Leukocyte Esterase Urine Negative (Negative); Nitrate Urine Negative (Negative); Protein Urine Neg (Negative); RBC Urine RARE /hpf (0-2); Specific Gravity, Urine 1.007 (1.005-1.030); Squamous Epithelial Cell Urine RARE (0-5); Urine Appearance Clear (CLEAR); Urine Color Yellow (Yellow); Urobilinogen Urine 1 mg/dL (Negative); WBC Urine RARE /hpf (0-5); pH Urine 5 (5-7)
[2019-12-25] VITALS (13 sets, daily range): BP systolic 105–139; BP diastolic 54–76; PULSE 74–92; RESP 16–24; TEMP 36.7–36.9; O2SAT 91–97
[2019-12-25 03:53] LABS: Basophils % 0.2 %; Eosinophils # 0.1 10^3/uL (0.0-0.8); Eosinophils % 1.6 %; Hematocrit 32.1 % (37.0-47.0); Lymphocytes # 0.9 10^3/uL (0.8-4.8); Lymphocytes % 10.4 %; Mean Corpuscular HGB Conc 31.2 g/dL (30.0-36.0); Mean Corpuscular Hemoglobin 26.4 pg (28.0-34.0); Mean Corpuscular Volume 84.7 fL (81-99); Mean Platelet Volume 10.5 fL (7.4-10.4); Monocytes # 0.8 10^3/uL (0.2-0.9); Monocytes % 9.7 %; Neutrophils # 6.4 10^3/uL (1.8-7.7); Neutrophils % 77.7 %; Nucleated Red Blood Cells % 0 %; Platelet Count 164 10^3/cmm (130-400); Red Blood Count 3.79 10^6/uL (4.1-5.3); Red Cell Distribution Width 14.8 % (12.1-15.1); White Blood Count 8.3 10^3/uL (4.0-10.0)
[2019-12-25] MEDS: ipratropium-albuterol 3 mL Neb INHALATION ×4 (04:00→21:47)
[2019-12-25 04:09] LABS: Alanine Aminotransferase 9 U/L (0-33); Albumin Level 3.1 g/dL (3.5-5.2); Alkaline Phosphatase 63 IU/L (35-105); Anion Gap 12.6 (5-19); Aspartate Amino Transferase 14 U/L (0-32); Blood Urea Nitrogen 13 mg/dL (8-23); Calcium 9.2 mg/dL (8.5-10.5); Carbon Dioxide 28 mmol/L (22-29); Chloride 102 mmol/L (98-107); Globulin 3.5 g/dL (1.3-4.6); Glucose 120 mg/dL (65-115); Osmolality Calculated 285 mOsm/kg (285-295); Potassium 3.6 mmol/L (3.5-5.1); Sodium 139 mmol/L (136-145); Total Bilirubin 0.9 mg/dL (0.15-1.2); Total Protein 6.6 g/dL (6.6-8.7)
[2019-12-25] MEDS: sodium chloride 0.9% 1,000 ML 50 ML IV (06:24)
[2019-12-25 07:34] LABS: Coronavirus Lab Test PTC SEE COMMENTS
[2019-12-25] MEDS: apixaban 5 mg Tablet PO ×2 (08:13→19:48)
[2019-12-25] MEDS: gabapentin 100 mg Capsule PO ×3 (08:13→20:17)
[2019-12-25] MEDS: metoprolol tartrate 50 mg Tablet PO (08:13)
--- NOTE | 2019-12-25 08:20 | P.PN_ITS ---
Subjective Subjective: Interval history: History and physical was reviewed. Patient reports she is breathing better than she was on admission. Still coughing up some sputum. No nausea, vomiting. Does not feel like she is swollen. Medications: Reviewed: Yes Vitals/I&O/Wt Last Vital Signs Temp 98.5 F 12/25/19 07:24 Pulse 85 12/25/19 07:24 Resp 17 12/25/19 07:24 BP 129/63 12/25/19 07:24 Pulse Ox 95 12/25/19 07:24 12/24/19 12/25/19 12/25/19 22:59 06:59 14:59 Intake Total 1156 / 1156 1100 / 2256 240 / 240 Output Total 350 / 350 Balance 806 / 806 1100 / 1906 240 / 240 Weight last 48 hrs Weight 75.75 kg Physical Exam Narrative: EXAM NARRATIVE: General exam is no apparent distress Cardiovascular regular rate and rhythm without murmur Lungs clear but with diminished breath sounds bilaterally. No wheezes or crackles Abdomen is soft with positive bowel sounds Extremities no cyanosis clubbing or edema Data : 12/25/19 03:20 12/25/19 03:20 Micro: Microbiology 12/24/19 21:20 Gram Stain - Final Sputum - Expectorated Sputum 12/24/19 21:20 Bacterial Antigens - Final Urine,Clean Catch 12/24/19 21:20 Legionella Urinary Antigen - Final Urine,Voided 12/24/19 14:17 Blood Culture - Preliminary Blood SPECIMEN COLLECTED 12/24/19 14:10 Blood Culture - Preliminary Blood SPECIMEN COLLECTED A&P Assessment and plan (1) Acute exacerbation of chronic obstructive airways disease: No wheezing currently. No current evidence of exacerbation. Continue pulmonary toilet. Status: Acute (2) Community acquired pneumonia: Continue Rocephin, azithromycin Status: Acute Qualifiers: Laterality: unspecified laterality Qualified Code(s): J18.9 - Pneumonia, unspecified organism (3) Suspected COVID-19 virus infection: Covid 19 negative. Isolation discontinued Status: Acute (4) Pneumonitis: IV antibiotics with Rocephin, azithromycin Status: Acute (5) Hypertension: Controlled Status: Acute (6) Pulmonary embolism: Continue Eliquis Status: Acute (7) Coumadin resistance: Status: Acute (8) CKD (chronic kidney disease): Stable Status: Acute Additional A&P Information Acute hypoxic respiratory failure. Currently on her baseline oxygen of 3 L. Secondary to pneumonia. Full code. 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
[2019-12-25] MEDS: budesonide 0.5 mg/2 mL Neb INHALATION ×2 (09:02→21:47)
[2019-12-25] MEDS: cefTRIAXone 2,000 MG in sodium chloride 0.9% (plus) 50 ML 100 MG IV (09:37)
[2019-12-25] MEDS: azithromycin 500 MG in sodium chloride 0.9% 250 ML 250 MG IV (16:53)
[2019-12-25] MEDS: atorvastatin 40 mg Tablet PO (20:17)
[2019-12-26] VITALS (9 sets, daily range): BP systolic 111–135; BP diastolic 52–71; PULSE 77–93; RESP 16–24; TEMP 36.4–37.1; O2SAT 91–95
[2019-12-26] MEDS: ipratropium-albuterol 3 mL Neb INHALATION ×2 (03:48→09:50)
[2019-12-26 05:11] LABS: Basophils % 0.1 %; Eosinophils # 0.2 10^3/uL (0.0-0.8); Eosinophils % 2.2 %; Hematocrit 31.6 % (37.0-47.0); Lymphocytes # 0.7 10^3/uL (0.8-4.8); Lymphocytes % 8.3 %; Mean Corpuscular HGB Conc 31.6 g/dL (30.0-36.0); Mean Corpuscular Hemoglobin 27.1 pg (28.0-34.0); Mean Corpuscular Volume 85.6 fL (81-99); Mean Platelet Volume 9.8 fL (7.4-10.4); Monocytes # 0.8 10^3/uL (0.2-0.9); Monocytes % 8.8 %; Neutrophils # 7.1 10^3/uL (1.8-7.7); Neutrophils % 79.9 %; Nucleated Red Blood Cells % 0 %; Platelet Count 164 10^3/cmm (130-400); Red Blood Count 3.69 10^6/uL (4.1-5.3); Red Cell Distribution Width 14.8 % (12.1-15.1); White Blood Count 8.9 10^3/uL (4.0-10.0)
[2019-12-26 05:27] LABS: Alanine Aminotransferase 12 U/L (0-33); Albumin Level 2.9 g/dL (3.5-5.2); Alkaline Phosphatase 61 IU/L (35-105); Anion Gap 14.3 (5-19); Aspartate Amino Transferase 17 U/L (0-32); Blood Urea Nitrogen 12 mg/dL (8-23); Carbon Dioxide 25 mmol/L (22-29); Chloride 102 mmol/L (98-107); Globulin 3.2 g/dL (1.3-4.6); Glucose 133 mg/dL (65-115); Osmolality Calculated 284 mOsm/kg (285-295); Potassium 3.3 mmol/L (3.5-5.1); Sodium 138 mmol/L (136-145); Total Bilirubin 0.7 mg/dL (0.15-1.2); Total Protein 6.1 g/dL (6.6-8.7)
[2019-12-26] MEDS: metoprolol tartrate 50 mg Tablet PO (09:10)
[2019-12-26] MEDS: apixaban 5 mg Tablet PO (09:10)
[2019-12-26] MEDS: gabapentin 100 mg Capsule PO (09:11)
[2019-12-26] MEDS: cefTRIAXone 2,000 MG in sodium chloride 0.9% (plus) 50 ML 100 MG IV (09:25)
--- NOTE | 2019-12-26 09:38 | P.DS_ITS ---
Discharge Providers Date of Admission: 12/24/19 15:34 Date of Discharge: December 26, 2019 Attending Provider at Admission: Cory Gutiérrez MD Attending Provider at Discharge: Brooks Vargas MD Primary Care Provider: Carmella Navarrete-Philomena Diagnoses at Discharge Discharge Diagnosis (1) Acute exacerbation of chronic obstructive airways disease: Status: Acute Problem details: Improved (2) Community acquired pneumonia: Status: Acute Problem details: Has completed 3 days of IV antibiotics. She is afebrile. She is on her baseline oxygen. She is able to ambulate around the room. She will finish up 7 more days of Ceftin near at home. Qualifiers: Laterality: unspecified laterality Qualified Code(s): J18.9 - Pneumonia, unspecified organism (3) Suspected COVID-19 virus infection: Status: Acute Problem details: COVID negative (4) Pneumonitis: Status: Acute Problem details: See above (5) Hypertension: Status: Acute Problem details: Controlled (6) Pulmonary embolism: Status: Acute Problem details: Currently on Eliquis (7) Coumadin resistance: Status: Acute (8) CKD (chronic kidney disease): Status: Acute Problem details: Stable Reason for Visit Reason for Visit: Reason For Visit: SOB, POSS PNEUMONIA Hospital Course Hospital Course: Wanda is a 74-year-old white female who presented to the emergency department with increased shortness of breath. Chest x-ray demonstrated bilateral lower lobe infiltrate. BNP was within normal limits. S econdary to history of fever Covid 19 testing was done. This was ultimately negative. She did not receive steroids for concern of COPD exacerbation secondary to concern of COVID. After this return negative patient had no significant wheezing, and further hospital stay she was given her regular medication for inhalation, IV antibiotics. By time of discharge she was afebrile for greater than 48 hours, able to ambulate at all around the room on her home oxygen, eating and drinking well. Physical Exam Narrative: EXAM NARRATIVE: General exam no apparent distress Cardiovascular regular in rhythm Lungs diminished breath sounds bilaterally but clear Abdomen is soft with positive bowel sounds Extremities no cyanosis clubbing or edema Discharge Data Data Completed and Pending: Completed Studies During Hospitalization Category Date Time Status XR chest 1V samia ble 52827 Urgent Exams 12/24/19 13:18 Completed Pending at discharge Category Date Time Status Arterial Blood Ga s Full Routine Lab 12/24/19 17:35 Received Blood Culture Sta t Lab 12/24/19 14:17 Results Complete Blood Co unt w/Auto AM LABS Lab 12/27/19 04:00 Ordered Comprehensive Met abolic Panel AM LA BS Lab 12/27/19 04:00 Ordered Sputum Culture an d Gram Stain Stat Lab 12/24/19 21:20 Results Labs from last 24 hours 12/26/19 12/26/19 05:00 05:00 WBC 8.9 RBC 3.69 L Hgb 10.0 L Hct 31.6 L MCV 85.6 MCH 27.1 L MCHC 31.6 RDW 14.8 Plt Count 164 MPV 9.8 Neut % (Auto) 79.9 Lymph % (Auto) 8.3 [place] % (Auto) 8.8 Eos % (Auto) 2.2 Baso % (Auto) 0.1 Neut # (Auto) 7.1 Lymph # (Auto) 0.7 L [place] # (Auto) 0.8 Eos # (Auto) 0.2 Baso # (Auto) 0.0 Nucleated RBC % (a uto) 0 Nucleated RBCs # 0.0 Sodium 138 Potassium 3.3 L Chloride 102 Carbon Dioxide 25 Anion Gap 14.3 BUN 12 Creatinine 1.1 H Glucose 133 H Calculated Osmolal ity 284 L Calcium 9.0 Total Bilirubin 0.7 AST 17 ALT 12 Alkaline Phosphata se 61 Total Protein 6.1 L Albumin 2.9 L Globulin 3.2 Vitals: Last Vital Signs Temp 98.1 F 12/26/19 08:00 Pulse 93 12/26/19 08:00 Resp 18 12/26/19 08:00 BP 122/67 12/26/19 08:00 Pulse Ox 92 12/26/19 08:00 Discharge Plan Discharge Patient Disposition: Home, Self-Care Condition: Fair Prescriptions: New cefdinir 300 mg capsule 300 mg PO BID 7 Days Qty: 14 RF: 0 Continued Vitamin D2 1.25 MG tablet 1.25 mg PO Q7D RF: 0 atorvastatin 40 mg Tablet 40 mg PO DAILY RF: 0 furosemide 40 mg Tablet 40 mg PO DAILY RF: 0 gabapentin 100 mg Capsule 100 mg PO TID RF: 0 fluticasone propionate 50 mcg/actuation [place],Suspension 2 spray INTRANASAL DAILY RF: 0 metoprolol tartrate 50 mg Tablet 50 mg PO DAILY RF: 0 ipratropium-albuterol 0.5 mg-3 mg(2.5 mg base)/3 mL solution for nebulization 3 ml INHALATION Q6H PRN (Reason: shortness of breath or wheezing) Qty: 180 RF: 0 fluticasone propion-salmeterol [Advair Diskus] 500-50 mcg/dose blister with device 1 inh INHALATION BID Qty: 60 RF: 0 Spiriva with HandiHaler 18 mcg Capsule, W/Inhalation Device 1 cap INHALATION DAILY RF: 0 Eliquis 5 mg tablet 5 mg PO BID RF: 0 Discontinued hydroxyzine pamoate 50 mg Capsule 50 mg PO QID PRN (Reason: Anxiety) RF: 0 Discharge Orders: Discharge Order (Routine); Ordered 12/26/19 Ordered By: Brooks Vargas Referrals: Carmella Navarrete, LOBBY PORTER-C [Primary Care Provider] - 4-7 days Discharge Diet: Usual diet Discharge Activity: Increase activity as tolerated Activity Restrictions/Additional Instructions: Resume home oxygen 3 L per nasal cannula. Take all medicine as prescribed. Follow-up with your primary sandra early next week, sooner for any concerns. 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
[2019-12-26] MEDS: budesonide 0.5 mg/2 mL Neb INHALATION (09:50)
--- NOTE | 2019-12-26 09:50 | PC.CHAP ---
Pastoral Care Encounter/Spiritual Assessment Type of Contact [] Declined radio assembler visit [] Patient/Family/Request visit [] Outpatient visit [] Follow-up visit [] Physician referral [] Code/Alert [x] Routine visit [] Staff referral [] Actively dying [] Patient sleeping [] Family support [] [] Out of room [] Palliative care [] [] Receiving care in room [] Pre-surgical visit [] Trauma [] Long length of stay [] ICU visit [] Other: Relational/Emotional Strength [x] Patient feels connected with others/family/visitors/staff [] Distress [] Loneliness/isolation [] Abandonment Spirituality of Patient [x] Person of Valorie [x] Attends Christianity of their [place]orie [x] Believes in Prayer [] Reads Bible or Hindu materials [] There are Spiritual issues to be addressed 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 Television Program 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 Interventions [x] Prayer [x] Active listening [x] Non-anxious presence [x] Spiritual/emotional support [] Crisis/trauma care [x] Spiritual counseling [] Bereavement support [] Provided bereavement packet [] Provided Bible/devotional materials [] Provided toy/stuffed animal, coloring book to patient or family member [] Provided Communion [] Anointing/[place] [] Salvation [] Completed spiritual assessment [] Other: Impact on Illness or Injury [] Angry [] Fearful [] Anxious [] Often cries [] Exhaustion [] Unable to work [] Unable to attend gnosticism [] Unable to walk/stand [] Unable to read [] Unable to drive [] Unable to eat/drink [] Unable to sleep [] Unable to be with family [] Patient intubated [x] Other: Summary Patient was waiting to be released today. Time spent with patient 5 minutes
[2019-12-29 15:41] LABS: ABG PCO2 35.8 mmHg (35-45); ABG PH Result 7.52 (7.35-7.45); Alveolar-Arterial Oxygen Gradi 49.4 mmHg (5-10); Arterial Blood Gas Hematocrit 36.1 % (37-47); Base Excess ABG 6.2 mmol/L (-2.0-2.0); Blood Gas Allen Test Pos; Blood Gas Sample Site Brachial, right; Blood Gas Sample Type Arterial; Carboxyhemoglobin 0.9 %THgb (0.4-20.1); HCO3 ABG 29.3 mmol/L (22-26); Ionized Calcium Level - ABG 1.1 mmol/L (1.1-1.4); Methemoglobin 0.8 % (0.4-1.5); Oxygen Device NC; Oxygen Saturation ABG 92.5; PO2 ABG 55.3 mmHg (80.0-100.0); Potassium Level - ABG 2.9 mmol/L (3.5-5.0); Total Hemoglobin 11.8 g/dL (12-16)
== END 2019-12-26 13:48 | disposition home or self-care (01) | DRG 193 ==
LOC: ER 15:33 → CSU 16:20 → MEDSURG 12-25 10:24
PROVIDERS: Admitting Provider Student in an Organized Health Care Education/Training Program; Emergency Provider Family Medicine; Family Provider Nurse Practitioner Family; PCP Nurse Practitioner Family; Visit Provider Internal Medicine
DX: J18.9 Pneumonia, unspecified organism (principal); J96.01 Acute respiratory failure with hypoxia; J44.1 Chronic obstructive pulmonary disease with (acute) exacerbation; J44.0 Chronic obstructive pulmonary disease with (acute) lower respiratory infection; Z99.81 Dependence on supplemental oxygen; I11.0 Hypertensive heart disease with heart failure; N18.9 Chronic kidney disease, unspecified; E78.5 Hyperlipidemia, unspecified; Z86.711 Personal history of pulmonary embolism; Z86.718 Personal history of other venous thrombosis and embolism; Z79.01 Long term (current) use of anticoagulants; G62.9 Polyneuropathy, unspecified; M19.90 Unspecified osteoarthritis, unspecified site; Z87.891 Personal history of nicotine dependence
CPT/HCPCS: 12345; 36415; 36600; 71045; 80051; 80053; 81001; 82728; 82810; 83540; 83550; 83615; 83880; 83986; 84145; 84443; 84484; 85025; 85378; 86140; 86403; 87040; 87070; 87205; 87449; 87635; 87804; 93005; 94640; 99283; J0456; J0696; J7030; J7040; J7050; J7626

== ENCOUNTER 2021-09-15 14:46 | Emergency (ER) | payer MEDICARE, MEDICAID, SELFPAY ==
[2021-09-15 14:56] VITALS: BP 135/53; PULSE 77; RESP 17; TEMP 36.8; O2SAT 94; BMI 29.2
--- NOTE | 2021-09-15 15:16 | XR_ITS ---
WS: [id number] Portable AP upright chest, 09/15/2021 Clinical Data: sob, COUGH Comparison: Portable chest, 12/24/2019 Findings: The right upper lobe nodule remains the same. The remainder of the lungs is clear. The hear t is at the upper limits of normal. No large masses or effusions are seen. The pulmonary vascularity is not increased. There is minimal left lower lobe interstitial change which remains the same. The a ortic arch and descending thoracic aorta show calcification and tortuosity. The diaphragms are flatte anaya. XR/XR chest 1V portable [id number] Impression: 1. No change in right upper lobe nodule. 2. Hyperinflation and atherosclerosis.
--- NOTE | 2021-09-15 15:17 | CT_ITS ---
WS: [id number] CT HEAD NONCONTRAST HISTORY: FREED TECHNIQUE: Contiguous axial imaging performed through the brain in 2.5 mm imaging. Bone and soft tiss ue windows. Sagittal and coronal reformats reviewed. All CT scans at [facility] use at least one of these dose optimization techniques: automated exposure control; mA and/or kV adjustment per pa tient size (includes targeted exams where dose is matched to clinical indication); or iterative recon struction. DLP: 825.65 mGy.cm COMPARISON: None available. No acute intracranial hemorrhage, midline shift or mass effect. Mild atrophy and mild chronic microvascular ischemic disease. Small lacunar infarcts in the anterior limbs of the internal capsules. No inferior displacement of cerebellar tonsils. Ventricles: Normal size with no hydrocephalus. Moderate calcified plaque within the intracranial carotid arteries. Paranasal sinuses: As visualized are clear. Mastoid air cells: Well pneumatized. Calvarium and scalp: Skull is intact with no soft tissue edema or swelling. CT/CT head wo con* 88000 IMPRESSION: 1. No acute intracranial hemorrhage or edema. 2. Mild atrophy and chronic microvascular ischemic disease.
--- NOTE | 2021-09-15 15:18 | W.ED.GENADLT ---
HPI - General Adult General: Chief complaint: Weakness Stated complaint: SOB/ COUGH Time Seen by Provider: 09/15/21 15:07 Source: patient Mode of arrival: EMS Limitations: no limitations History of Present Illness: HPI narrative: Patient is a nice 76-year-old female who presents to ED today with a complaint of possible pneumonia. She is complaining of a productive cough with green sputum. She also complains of fatigue and a headache. Headache is alleviated by taking Tylenol. She has not noticed any fevers. She did receive a COVID booster immunization on Monday. Patient tells me she was not ill prior to receiving this but around 2 AM that evening began feeling sick. Patient does have a history of COPD. She wears 3L O2 via nasal cannula continuously. She has not had to increase this. She does not complain of chest pain. She feels like her shortness of breath is at baseline. Patient states she saw her PCP earlier this morning who referred her to the ED for further testing. She states they did do a rapid COVID there which was negative. Associated symptoms: Reports dyspnea (chronic-at baseline) and headache(s); Deny chest pain, confusion, nausea, rash, palpitations, syncope or vomiting Review of Systems Const: Reports: body aches and fatigue; Denies: fever(s) or chills ENMT: Denies: throat pain, odynophagia, nasal discharge, nasal congestion, post nasal drip or sinus pain Card: Reports: swelling of feet/ankles (chronic-at baseline per patient); Denies: chest pain, palpitations, irregular heart rhythm, edema, lightheadedness, syncope or pre-syncope Resp: Reports: dyspnea (chronic-at baseline), productive cough, change in phlegm color and chest congestion; Denies: wheezing or hemoptysis GI: Denies: abdominal pain, nausea, vomiting or diarrhea : Denies: flank pain, dysuria or hematuria Musc: Denies: neck pain, back pain, extremity pain or joint pain Skin/Breast: Denies: rash Neuro: Reports: headache(s); Denies: numbness in extremities, weakness in extremities, sensory changes, difficulty walking, frequent falls, dizziness, confusion, Slurred speech present or difficulty communicating thoughts [facility] ED PFSH: Medical History (Updated 09/15/21 @ 16:51 by KENDALL Quiñonez) CKD (chronic kidney disease) Stable COPD (chronic obstructive pulmonary disease) Coumadin resistance DVT (deep venous thrombosis) Neuropathy On home oxygen therapy Osteoarthritis Surgical History History of hysterectomy Family History Family/Other CAD (coronary artery disease) Social History Smoking and tobacco status: former smoker Quit status (tobacco): has quit using tobacco Alcohol intake: never Lives independently: Yes Physical Exam Const: COMMON NORMALS: no acute distress, average body habitus, patient oriented x3, no limitations, healthy appearing, alert and well nourished GENERAL APPEARANCE: cooperative ORIENTATION/CONSCIOUSNESS: Yes awake, Yes oriented to person, Yes oriented to place and Yes oriented to time HENMT: COMMON NORMALS: normocephalic and atraumatic HEAD & SCALP: normocephalic and atraumatic Resp: COMMON NORMALS: normal respiratory effort and clear to auscultation bilaterally AUSCULTATION: clear to auscultation bilaterally OTHER: pt satting at 98% on her normal 3L O2 Cardio: COMMON NORMALS: regular rate and regular rhythm RATE: regular rate RHYTHM: regular rhythm GI: COMMON NORMALS: Normal to inspection, nondistended, normoactive bowel sounds present, Soft to palpation, non-tender, No hepatosplenomegaly present and no masses PALPATION: Yes Soft to palpation and Yes No hepatosplenomegaly present Extremity: COMMON NORMALS: capillary refill normal and no calf tenderness NARRATIVE EXTREMITY EXAM: chronic bilateral LE edema-patient states this has not worsened; some mild L LE venous stasis changes Neuro: BENJI COMA SCALE: document GCS findings [place] coma scale eye opening: Spontaneous [place] coma scale verbal response: Orientated [place] coma scale motor response: Obey commands [place] coma scale total score: 15 COMMON NORMALS: patient oriented x3, CN's II-XII intact bilaterally, moves all extremities, no focal motor deficits and no sensory deficits noted SENSORIUM/ORIENTATION: Yes alert, Yes oriented to person, Yes oriented to place and Yes oriented to time Skin: COMMON NORMALS: no rashes or lesions noted GENERAL SKIN EXAM: no rashes or lesions noted Course Vital Signs: Vital signs: Vital Signs Temperature 98.2 F 09/15/21 14:56 Pulse Rate 77 09/15/21 14:56 Respiratory Rate 17 09/15/21 14:56 Blood Pressure 135/53 09/15/21 14:56 Pulse Oximetry 94 09/15/21 14:56 MDM - General Adult MDM Narrative: Medical decision making narrative: Patient is not required an increase in oxygen apart from her baseline 3L. She is not tachycardic or febrile. Her CXR is normal. She has a normal white count. Procalcitonin is scantly elevated at 0.6. She reportedly had a negative rapid COVID prior to arrival to the ED. Coronavirus PCR is pending. Patient clinically appears well. Some of symptoms could be secondary to immune response following her booster immunization however she has had increased/new green sputum therefore will treat for COPD exacerbation with abx/steroids. Recommend follow-up with PCP for non-improving symptoms. Strict return to ED precautions verbally given to patient. Sputum culture pending. Lab Data: Labs: Lab Results 09/15/21 09/15/21 15:42 15:42 WBC 8.9 10^3/uL 10^3/ uL (4.0-10.0) RBC 4.05 10^6/uL L 10 ^6/uL (4.1-5.3) Hgb 10.3 g/dL L g/dL (11.5-15.3) Hct 34.4 % L % (37.0-47.0) MCV 84.9 fl fl (81-99) MCH 25.4 pg L pg (28.0-34.0) MCHC 29.9 g/dL L g/dL (30.0-36.0) RDW 14.6 % % (12.1-15.1) Plt Count 195 10^3/cmm 10^3 /cmm (130-400) MPV 10.6 fL H fL (7.4-10.4) Neut % (Auto) 78.1 % % Lymph % (Auto) 9.7 % % [place] % (Auto) 8.8 % % Eos % (Auto) 2.7 % % Baso % (Auto) 0.3 % % Neut # (Auto) 6.97 10^3/uL 10^3 /uL (1.8-7.7) Lymph # (Auto) 0.9 10^3/uL 10^3/ uL (0.8-4.8) [place] # (Auto) 0.8 10^3/uL 10^3/ uL (0.2-0.9) Eos # (Auto) 0.2 10^3/uL 10^3/ uL (0.0-0.8) Baso # (Auto) 0.0 10^3/uL 10^3/ uL (0.0-0.1) Nucleated RBC % (a uto) 0 % % Nucleated RBCs # 0.0 /100WBC /100W BC Sodium 140 mmol/L mmol/L (136-145) Potassium 3.5 mmol/L mmol/L (3.5-5.1) Chloride 100 mmol/L mmol/L (98-107) Carbon Dioxide 29 mmol/L mmol/L (22-29) Anion Gap 14.5 (5-19) BUN 16 mg/dL mg/dL (8-23) Creatinine 1.1 mg/dL H mg/dL (0.5-0.9) GFR Calculation Not Reportable Glucose 84 mg/dL mg/dL (65-115) Calculated Osmolal ity 290 mOsm/kg mOsm/ kg (285-295) Calcium 8.6 mg/dL mg/dL (8.5-10.5) Total Bilirubin 0.5 mg/dL mg/dL (0.15-1.2) AST 12 U/L U/L (0-32) ALT 7 U/L U/L (0-33) Alkaline Phosphata se 84 IU/L IU/L (35-105) Total Protein 6.7 g/dL g/dL (6.6-8.7) Albumin 3.5 g/dL g/dL (3.5-5.2) Globulin 3.2 g/dL g/dL (1.3-4.6) Procalcitonin 0.63 ng/mL H ng/m L (0-0.5) Imaging Data^: CXR: Radiologist's impression: [place] [address] [address]ZAmb ReportSigned Patient: Mayo Santiagocassidy Villagomezt #: [id number]: [id number]#:[id number]/Sex: 76 / FADM Date: 09/15/21Loc: ERRoom/Bed:Attending Dr: Ordering Provider/Ordering MD: Hazel Contreras Date of Service: 09/15/21 Procedure(s): XR chest 1V portable [id number] Accession Number(s): [id number] Report Number: [id number] WS: [id number] Portable AP upright chest, 09/15/2021 Clinical Data: sob, COUGH Comparison: Portable chest, 12/24/2019 Findings: The right upper lobe nodule remains the same. The remainder of the lungs is clear. The heart is at the upper limits of normal. No large masses or effusions are seen. The pulmonary vascularity is not increased. There is minimal left lower lobe interstitial change which remains the same. The aortic arch and descending thoracic aorta show calcification and tortuosity. The diaphragms are flattened. XR/XR chest 1V portable 12002 Impression: 1. No change in right upper lobe nodule. 2. Hyperinflation and atherosclerosis. Dictated By:Viki Stevenson MDSigned By:Viki Stevenson MDSigned Date/Time:09/15/21 1534DD/ 1531 CT Head: Radiologist's impression: [address] [address] [address] Scan Report Signed Patient: Wanda Santiago Unit #: [id number] : [id number] Age/Sex: 76 / F ADM Date: 09/15/21 Loc: ER Room/Bed: Attending Dr: Ordering Provider/Ordering MD: Hazel Contreras Date of Service: 09/15/21 Procedure(s): CT head wo con* [id number] Accession Number(s): [id number] Report Number: [id number] WS: [id number] CT HEAD NONCONTRAST HISTORY: FREED TECHNIQUE: Contiguous axial imaging performed through the brain in 2.5 mm imaging. Bone and soft tissue windows. Sagittal and coronal reformats reviewed. All CT scans at [facility] use at least one of these dose optimization techniques: automated exposure control; mA and/or kV adjustment per patient size (includes targeted exams where dose is matched to clinical indication); or iterative reconstruction. DLP: 825.65 mGy.cm COMPARISON: None available. No acute intracranial hemorrhage, midline shift or mass effect. Mild atrophy and mild chronic microvascular ischemic disease. Small lacunar infarcts in the anterior limbs of the internal capsules. No inferior displacement of cerebellar tonsils. Ventricles: Normal size with no hydrocephalus. Moderate calcified plaque within the intracranial carotid arteries. Paranasal sinuses: As visualized are clear. Mastoid air cells: Well pneumatized. Calvarium and scalp: Skull is intact with no soft tissue edema or swelling. CT/CT head wo con* 12100 IMPRESSION: 1. No acute intracranial hemorrhage or edema. 2. Mild atrophy and chronic microvascular ischemic disease. Dictated By: Ratna Vergara DO Signed By: Ratna Vergara DO Signed Date/Time: 09/15/211543 DD/ 41 Discharge Plan Discharge Patient Disposition: Home Clinical Impression: COPD with acute exacerbation Condition: Stable Prescriptions: New levofloxacin 750 mg tablet 750 mg PO DAILY 7 Days Qty: 7 RF: 0 prednisone 10 mg tablet 60 mg PO DAILY 5 Days Qty: 30 RF: 0 No Action Vitamin D2 1.25 MG tablet 1.25 mg PO Q7D RF: 0 atorvastatin 40 mg Tablet 40 mg PO DAILY RF: 0 furosemide 40 mg Tablet 40 mg PO DAILY RF: 0 gabapentin 100 mg Capsule 100 mg PO TID RF: 0 fluticasone propionate 50 mcg/actuation [place],Suspension 2 spray INTRANASAL DAILY RF: 0 metoprolol tartrate 50 mg Tablet 50 mg PO DAILY RF: 0 ipratropium-albuterol 0.5 mg-3 mg(2.5 mg base)/3 mL solution for nebulization 3 ml INHALATION Q6H PRN (Reason: shortness of breath or wheezing) Qty: 180 RF: 0 fluticasone propion-salmeterol [Advair Diskus] 500-50 mcg/dose blister with device 1 inh INHALATION BID Qty: 60 RF: 0 Spiriva with HandiHaler 18 mcg Capsule, W/Inhalation Device 1 cap INHALATION DAILY RF: 0 Eliquis 5 mg tablet 5 mg PO BID RF: 0 Discharge Orders: Discharge ED (Routine); Ordered 09/15/21 Ordered By: Hazel Contreras Patient Instructions: COPD (Chronic Obstructive Pulmonary Disease) (ED) Activity Restrictions/Additional Instructions: Please follow-up with your primary care provider in 3 to 5 days for non-improving or persistent symptoms. You need to return the emergency department for severe shortness of breath, difficulty breathing, having to increase your home O2 amount, fevers, generally feeling unwell, or any other concerns you may have. Fill your antibiotics and steroids and start them immediately. You have been given a dose today prior to discharge. I hope you begin to feel better soon. Coding Level of Care Code ED Infrastructure Security Architect for Cammy Fwchitra Exam Comprehensive
[2021-09-15 15:55] LABS: Basophils % 0.3 %; Eosinophils # 0.2 10^3/uL (0.0-0.8); Eosinophils % 2.7 %; Hematocrit 34.4 % (37.0-47.0); Hemoglobin 10.3 g/dL (11.5-15.3); Lymphocytes # 0.9 10^3/uL (0.8-4.8); Lymphocytes % 9.7 %; Mean Corpuscular HGB Conc 29.9 g/dL (30.0-36.0); Mean Corpuscular Hemoglobin 25.4 pg (28.0-34.0); Mean Corpuscular Volume 84.9 fl (81-99); Mean Platelet Volume 10.6 fL (7.4-10.4); Monocytes # 0.8 10^3/uL (0.2-0.9); Monocytes % 8.8 %; Neutrophils # 6.97 10^3/uL (1.8-7.7); Neutrophils % 78.1 %; Nucleated Red Blood Cells % 0 %; Platelet Count 195 10^3/cmm (130-400); Red Blood Count 4.05 10^6/uL (4.1-5.3); Red Cell Distribution Width 14.6 % (12.1-15.1); White Blood Count 8.9 10^3/uL (4.0-10.0)
[2021-09-15 16:21] LABS: Alanine Aminotransferase 7 U/L (0-33); Albumin Level 3.5 g/dL (3.5-5.2); Alkaline Phosphatase 84 IU/L (35-105); Anion Gap 14.5 (5-19); Aspartate Amino Transferase 12 U/L (0-32); Blood Urea Nitrogen 16 mg/dL (8-23); Calcium 8.6 mg/dL (8.5-10.5); Carbon Dioxide 29 mmol/L (22-29); Chloride 100 mmol/L (98-107); Globulin 3.2 g/dL (1.3-4.6); Glucose 84 mg/dL (65-115); Osmolality Calculated 290 mOsm/kg (285-295); Potassium 3.5 mmol/L (3.5-5.1); Sodium 140 mmol/L (136-145); Total Bilirubin 0.5 mg/dL (0.15-1.2); Total Protein 6.7 g/dL (6.6-8.7)
[2021-09-15 16:24] LABS: Procalcitonin 0.63 ng/mL (0-0.5)
[2021-09-15] MEDS: levoFLOXacin 750 mg Tablet PO (17:00)
--- NOTE | 2021-09-15 19:59 | PC.NURSE ---
Pt discharged on prior shift
== END 2021-09-15 19:59 | disposition home or self-care (01) ==
PROVIDERS: Emergency Provider Physician Assistant
DX: Z87.891 Personal history of nicotine dependence (principal); J44.1 Chronic obstructive pulmonary disease with (acute) exacerbation
CPT/HCPCS: 70450; 71045; 80053; 84145; 85025; 87070; 87205; 87635; 99283

== ENCOUNTER 2022-06-11 01:05 | Emergency (ER) | payer MEDICARE, MEDICAID, SELFPAY ==
[2022-06-11] VITALS (7 sets, daily range): BP systolic 98–143; BP diastolic 55–70; PULSE 69–83; RESP 16–22; TEMP 37.3–37.4; O2SAT 92–98; BMI 29.2
--- NOTE | 2022-06-11 01:30 | XRR_ITS ---
PROCEDURE INFORMATION: Exam: XR Chest Exam date and time: 06/11/2022 1:33 AM Age: 77 years old Clinical indication: Fever and shortness of breath; Patient HX: Fever with SOB and general weakness. Received covid booster yesterday. TECHNIQUE: Imaging protocol: Radiologic exam of the chest. Views: 1 view. COMPARISON: CR XR chest 1V portable [id number] 09/15/2021 3:28 PM FINDINGS: Lungs: An ovoid patchy opacity is again seen in the right upper hemithorax appearing stable compared with 09/15/2021. . There are some increased linear and hazy opacities present in the lower hemithoraces bilaterally that may represent atelectasis although a bilateral basilar pneumonitis cannot be excluded. Pleural spaces: There is a small left pleural effusion blunts the left costophrenic recess. Heart/Mediastinum: Unremarkable. No cardiomegaly. Bones/joints: Unremarkable. XR/XR chest 1V portable [id number] IMPRESSION: 1. Linear and hazy opacities in the lower hemithoraces may represent atelectasis although bilateral basilar interstitial pneumonitis cannot be entirely excluded. 2. Small left pleural effusion 3. Stable ovoid nodularity in the right upper hemithorax compared with 09/15/2021.
--- NOTE | 2022-06-11 01:30 | PC.NURSE ---
covid pcr obtained at this time.
[2022-06-11 01:46] LABS: Basophils % 0.3 %; Eosinophils % 0.6 %; Hematocrit 35.7 % (37.0-47.0); Hemoglobin 11.3 g/dL (11.5-15.3); Lymphocytes # 0.7 10^3/uL (0.8-4.8); Lymphocytes % 10.4 %; Mean Corpuscular HGB Conc 31.7 g/dL (30.0-36.0); Mean Corpuscular Hemoglobin 26.3 pg (28.0-34.0); Mean Corpuscular Volume 83.2 fl (81-99); Mean Platelet Volume 10.4 fL (7.4-10.4); Monocytes # 0.7 10^3/uL (0.2-0.9); Monocytes % 10.1 %; Neutrophils # 5.49 10^3/uL (1.8-7.7); Nucleated Red Blood Cells % 0 %; Platelet Count 163 10^3/cmm (130-400); Red Blood Count 4.29 10^6/uL (4.1-5.3); Red Cell Distribution Width 14.2 % (12.1-15.1)
--- NOTE | 2022-06-11 01:50 | ED_ITS ---
HPI - Weakness General: Chief complaint: Weakness Stated complaint: FEVER Time Seen by Provider: 06/11/22 01:20 History of Present Illness: 77-year-old female with a history of chronic lung disease. She presents with fever, weakness. Evidently, 36 hours or so ago she got her COVID shot. She began to have aches and get a fever several hours ago. She was more short of breath than usual at home. She has been coughing. She has not been producing sputum. She was generally weak, and could not walk at home with her temperature. MD Complaint: generalized weakness Onset (ago): hour(s) Location: generalized Associated symptoms: Reports diaphoresis, fever(s), headache(s), nausea, short of breath and vomiting; Denies chest pain, chills or confusion Review of Systems Const: Reports: fever(s) and diaphoresis; Denies: chills Card: Denies: chest pain GI: Reports: nausea and vomiting Skin/Breast: Denies: rash Neuro: Reports: headache(s); Denies: confusion PFSH ED PFSH: Medical History (Updated 06/11/22 @ 04:28 by Dylan Chen DO) CKD (chronic kidney disease) Stable COPD (chronic obstructive pulmonary disease) Coumadin resistance DVT (deep venous thrombosis) Neuropathy On home oxygen therapy Osteoarthritis Surgical History History of hysterectomy Family History Family/Other CAD (coronary artery disease) Social History Smoking and tobacco status: former smoker Quit status (tobacco): has quit using tobacco Alcohol intake: never Lives independently: Yes Physical Exam Const: GENERAL APPEARANCE: cooperative, ill appearing and frail appearing HENMT: COMMON NORMALS: normocephalic, atraumatic and Normal external nose present HEAD & SCALP: normocephalic and atraumatic FACE & SINUS: normal f acial exam and face symmetric NOSE: Normal external nose present and No nasal polyps present THROAT: posterior oropharynx normal Eye: COMMON NORMALS: Equal, round and reactive pupils present and EOMs intact bilaterally PUPIL: Yes Equal, round and reactive pupils present Chest: CHEST: Yes Symmetrical chest wall rise Resp: COMMON NORMALS: normal respiratory effort, No use of accessory muscles and clear to auscultation bilaterally AUSCULTATION: clear to auscultation bilaterally Cardio: COMMON NORMALS: regular rate and regular rhythm RATE: regular rate RHYTHM: regular rhythm GI: COMMON NORMALS: Normal to inspection, nondistended, normoactive bowel sounds present, Soft to palpation and non-tender PALPATION: Yes Soft to palpation Extremity: GENERAL: Yes edema Neuro: LEONEL COMA SCALE: document GCS findings [place] coma scale eye opening: Spontaneous [place] coma scale verbal response: Orientated [place] coma scale motor response: Obey commands [place] coma scale total score: 15 Psych: COMMON NORMALS: mental status grossly normal and cooperative Course Vital Signs: Vital signs: Vital Signs Temperature 99.3 F 06/11/22 01:28 Pulse Rate 69 06/11/22 04:44 Respiratory Rate 16 06/11/22 04:44 Blood Pressure 98/55 06/11/22 04:44 Pulse Oximetry 96 06/11/22 04:44 Oxygen Delivery Me thod 06/11/22 04:44 Oxygen Flow Rate 4 06/11/22 04:44 MDM - Weakness Medical Decision Making Patient is breathing and feeling better. She is still generally weak. Heart rate 74. Blood pressure 106/53. Saturations 96% on 4 L. We did get her up in the room. She is essentially a full assist at this point as she is quite weak. She has however improved. There is some desaturation with activity. Hemoglobin 11.3. White blood cell count 7. Potassium is 3.3. Creatinine is 1.4. Chest x-ray shows linear hazy opacities in the bilateral lower lung melvin that is likely pneumonitis. Her COVID PCR is negative. She has received breathing treatment here with some improvement. Her BNP is only 600. She will be allowed home on antibiotic coverage and steroids for COPD exacerbation. Lab Data : 06/11/22 01:37 06/11/22 01:37 Radiology Impressions Chest X-Ray 06/11/22 01:30 IMPRESSION: 1. Linear and hazy opacities in the lower hemithoraces may represent atelectasis although bilateral basilar interstitial pneumonitis cannot be entirely excluded. 2. Small left pleural effusion 3. Stable ovoid nodularity in the right upper hemithorax compared with 09/15/2021. Laboratory Results WBC 7.0 10^3/uL (4.0-10.0) 06/11/22 01:37 RBC 4.29 10^6/uL (4.1-5.3) 06/11/22 01:37 Hgb 11.3 g/dL (11.5-15.3) L 06/11/22 01:37 Hct 35.7 % (37.0-47.0) L 06/11/22 01:37 MCV 83.2 fl (81-99) 06/11/22 01:37 MCH 26.3 pg (28.0-34.0) L 06/11/22 01:37 MCHC 31.7 g/dL (30.0-36.0) 06/11/22 01:37 RDW 14.2 % (12.1-15.1) 06/11/22 01:37 Plt Count 163 10^3/cmm (130-400) 06/11/22 01:37 MPV 10.4 fL (7.4-10.4) 06/11/22 01:37 Neut % (Auto) 78.0 % 06/11/22 01:37 Lymph % (Auto) 10.4 % 06/11/22 01:37 [place] % (Auto) 10.1 % 06/11/22 01:37 Eos % (Auto) 0.6 % 06/11/22 01:37 Baso % (Auto) 0.3 % 06/11/22 01:37 Neut # (Auto) 5.49 10^3/uL (1.8-7.7) 06/11/22 01:37 Lymph # (Auto) 0.7 10^3/uL (0.8-4.8) L 06/11/22 01:37 [place] # (Auto) 0.7 10^3/uL (0.2-0.9) 06/11/22 01:37 Eos # (Auto) 0.0 10^3/uL (0.0-0.8) 06/11/22 01:37 Baso # (Auto) 0.0 10^3/uL (0.0-0.1) 06/11/22 01:37 Nucleated RBC % (auto) 0 % 06/11/22 01:37 Nucleated RBCs # 0.0 /100WBC 06/11/22 01:37 Specimen Type Arterial 06/11/22 02:05 Sample Site Radial, left 06/11/22 02:05 ABG pH 7.46 (7.35-7.45) H 06/11/22 02:05 ABG pCO2 46.0 mmHg (35-45) H 06/11/22 02:05 ABG pO2 169.0 mmHg (80.0-100.0) H 06/11/22 02:05 ABG HCO3 32.8 mmol/L (22-26) H 06/11/22 02:05 ABG Base Excess 7.9 mmol/L (-2.0-2.0) H 06/11/22 02:05 Sushil Test Pos 06/11/22 02:05 Hematocrit 36.4 % (37-47) L 06/11/22 02:05 Hgb O2 Saturation 97.9 % (95-100) 06/11/22 02:05 Carboxyhemoglobin 1.2 %THgb (0.4-20.1) 06/11/22 02:05 Methemoglobin 1.0 % (0.4-1.5) 06/11/22 02:05 Total Hemoglobin 11.9 g/dL (12-16) L 06/11/22 02:05 O2 Delivery Device Nc 06/11/22 02:05 O2 Liters/Min 4.0 % 06/11/22 02:05 FiO2 36.0 % 06/11/22 02:05 Vocational Rehabilitation Counselor ID [place] 06/11/22 02:05 Sodium 135 mmol/L (136-145) L 06/11/22 01:37 Potassium 3.3 mmol/L (3.5-5.1) L 06/11/22 01:37 Chloride 94 mmol/L (98-107) L 06/11/22 01:37 Carbon Dioxide 32 mmol/L (22-29) H 06/11/22 01:37 Anion Gap 12.3 (5-19) 06/11/22 01:37 BUN 15 mg/dL (8-23) 06/11/22 01:37 Creatinine 1.4 mg/dL (0.5-0.9) H 06/11/22 01:37 GFR Calculation Not Reportable 06/11/22 01:37 Glucose 128 mg/dL (65-115) H 06/11/22 01:37 Calculated Osmolality 282 mOsm/kg (285-295) L 06/11/22 01:37 Lactic Acid 0.9 mmol/L (0.5-2.2) 06/11/22 01:37 Calcium 9.2 mg/dL (8.5-10.5) 06/11/22 01:37 Total Bilirubin 0.9 mg/dL (0.15-1.2) 06/11/22 01:37 AST 15 U/L (0-32) 06/11/22 01:37 ALT 9 U/L (0-33) 06/11/22 01:37 Alkaline Phosphatase 99 U/L (35-105) 06/11/22 01:37 NT-Pro-B Natriuret Pep 634 pg/mL (0-450) H 06/11/22 01:37 Total Protein 6.7 g/dL (6.6-8.7) 06/11/22 01:37 Albumin 3.4 g/dL (3.5-5.2) L 06/11/22 01:37 Globulin 3.3 g/dL (1.3-4.6) 06/11/22 01:37 Coronavirus 229E (PCR) Not detected (NOT DETECT) 06/11/22 01:37 SARS-CoV-2 (PCR) Not detected (NOT DETECT) 06/11/22 01:37 Discharge Plan Discharge Patient Disposition: Home Clinical Impression: COPD with acute exacerbation Condition: Stable Prescriptions: New prednisone 20 mg tablet 60 mg PO DAILY 5 Days Qty: 15 0RF doxycycline hyclate 100 mg capsule 100 mg PO BID 7 Days Qty: 14 0RF No Action Vitamin D2 1.25 MG tablet 1.25 mg PO Q7D Rx Instructions: (ON MONDAYS) atorvastatin 40 mg Tablet 40 mg PO DAILY furosemide 40 mg Tablet 40 mg PO DAILY gabapentin 100 mg Capsule 100 mg PO TID fluticasone propionate 50 mcg/actuation [place],Suspension 2 spray INTRANASAL DAILY metoprolol tartrate 50 mg Tablet 50 mg PO DAILY ipratropium-albuterol 0.5 mg-3 mg(2.5 mg base)/3 mL solution for nebulization 3 ml INHALATION Q6H PRN (Reason: shortness of breath or wheezing) Qty: 180 0RF fluticasone propion-salmeterol [Advair Diskus] 500-50 mcg/dose blister with device 1 inh INHALATION BID Qty: 60 0RF Spiriva with HandiHaler 18 mcg Capsule, W/Inhalation Device 1 cap INHALATION DAILY Eliquis 5 mg tablet 5 mg PO BID Discharge Orders: Discharge ED (Routine); Ordered 06/11/22 Ordered By: Dylan Chen Patient Instructions: COPD (Chronic Obstructive Pulmonary Disease) (ED) Activity Restrictions/Additional Instructions: Return for fever despite 2-3 doses of antibiotics, worsening shortness of breath despite treatment, worsening weakness or mental status, any other concerning symptoms. Use your breathing treatments every 4 hours while awake for the next 48 hours, then as needed. Coding Level of Care Code ED Fruit Stuffer for Alecg Fwd Exam Comprehensive
[2022-06-11] MEDS: ipratropium-albuterol 3 mL Neb INHALATION (02:06)
[2022-06-11 02:08] LABS: Lactic Sepsis W/Reflex 0.9 mmol/L (0.5-2.2)
[2022-06-11 02:15] LABS: Alanine Aminotransferase 9 U/L (0-33); Albumin Level 3.4 g/dL (3.5-5.2); Alkaline Phosphatase 99 U/L (35-105); Aspartate Amino Transferase 15 U/L (0-32); Blood Urea Nitrogen 15 mg/dL (8-23); Calcium 9.2 mg/dL (8.5-10.5); Carbon Dioxide 32 mmol/L (22-29); Chloride 94 mmol/L (98-107); Globulin 3.3 g/dL (1.3-4.6); Glucose 128 mg/dL (65-115); NT Pro B Type Natriuretic Pept 634 pg/mL (0-450); Osmolality Calculated 282 mOsm/kg (285-295); Sodium 135 mmol/L (136-145); Total Bilirubin 0.9 mg/dL (0.15-1.2); Total Protein 6.7 g/dL (6.6-8.7)
[2022-06-11 02:17] LABS: ABG PH Result 7.46 (7.35-7.45); Arterial Blood Gas Hematocrit 36.4 % (37-47); Base Excess ABG 7.9 mmol/L (-2.0-2.0); Blood Gas Allen Test Pos; Blood Gas Operator Identificat MONRO; Blood Gas Sample Site Radial, left; Blood Gas Sample Type Arterial; Carboxyhemoglobin 1.2 %THgb (0.4-20.1); HCO3 ABG 32.8 mmol/L (22-26); HGB O2 Sat 97.9 % (95-100); Oxygen Device NC; Total Hemoglobin 11.9 g/dL (12-16)
[2022-06-11 02:25] LABS: Anion Gap 12.3 (5-19); Potassium 3.3 mmol/L (3.5-5.1)
[2022-06-11] MEDS: acetaminophen 500 mg Tablet 1000 MG PO (02:38)
--- NOTE | 2022-06-11 03:18 | PC.NURSE ---
ambulation challenge performed, patient able to get to side of bed in sitting position by herself. patient assisted x 1 to standing position, and assisted in taking 11 steps at bedside and returning to bed. while ambulating, patient very unsteady, heavily relying on this nurse to maintain balance and weight bearing. patient o2 saturation also 85% during ambulation on 4l nc, returned to 94% on return to bed. patient denied any dizziness, palpitations, vision changes, increased dyspnea during this activity. dr lezama notified of findings.
[2022-06-11 03:31] LABS: Adenovirus Not Detected (NOT DETECT); Chlamydia Pneumoniae Not Detected (NOT DETECT); Coronavirus 229E,HKU1,NL63,OC4 Not Detected (NOT DETECT); Human Metapneumovirus Not Detected (NOT DETECT); Human Rhinovirus/Enterovirus Not Detected (NOT DETECT); Influenza A Not Detected (NOT DETECT); Influenza A H1 Not Detected (NOT DETECT); Influenza A H1-2009 Not Detected (NOT DETECT); Influenza A H3 Not Detected (NOT DETECT); Influenza B Not Detected (NOT DETECT); Mycoplasma Pneumoniae Not Detected (NOT DETECT); Parainfluenza Virus Type 1 Not Detected (NOT DETECT); Parainfluenza Virus Type 2 Not Detected (NOT DETECT); Parainfluenza Virus Type 3 Not Detected (NOT DETECT); Parainfluenza Virus Type 4 Not Detected (NOT DETECT); Respiratory Syncytial Virus A Not Detected (NOT DETECT); Respiratory Syncytial Virus B Not Detected (NOT DETECT); SARS-COV-2 Not Detected (NOT DETECT)
--- NOTE | 2022-06-11 04:35 | PC.NURSE ---
spoke with kathy, patient daughter, confirmed that she will be available to be with the patient at all times to assist due to weakness and unstable gait. kathy states that she is with the patient at all times day and night and will able to assist patient with ADLs. explained plan of care post discharge, medications, and follow up. kathy verbalized understanding. states she can arrive in 1.5 hours to pick patient up.
[2022-06-11] MEDS: doxycycline 100 mg Tablet PO (04:42)
== END 2022-06-11 06:49 | disposition home or self-care (01) ==
PROVIDERS: Emergency Provider Emergency Medicine
DX: J44.1 Chronic obstructive pulmonary disease with (acute) exacerbation (principal); N18.9 Chronic kidney disease, unspecified; Z79.01 Long term (current) use of anticoagulants; Z79.51 Long term (current) use of inhaled steroids; R40.2412 Glasgow coma scale score 13-15, at arrival to emergency department; Z87.891 Personal history of nicotine dependence; Z99.81 Dependence on supplemental oxygen
CPT/HCPCS: 36600; 71045; 80053; 82805; 83605; 83880; 85025; 87635; 94640; 96374; 99285; J2930

== ENCOUNTER → 2023-03-16 14:11 | Outpatient (BNVA) | payer MEDICARE, MEDICAID, SELFPAY | PROVIDERS: Visit Provider Nurse Practitioner Family | DX: I96 Gangrene, not elsewhere classified (principal); L98.492 Non-pressure chronic ulcer of skin of other sites with fat layer exposed | CPT/HCPCS: 97597; 97598; 99213 ==

== ENCOUNTER → 2023-03-23 15:03 | Outpatient (BNVA) | payer MEDICARE, MEDICAID, SELFPAY | PROVIDERS: Visit Provider Nurse Practitioner Family | DX: I96 Gangrene, not elsewhere classified (principal); L98.492 Non-pressure chronic ulcer of skin of other sites with fat layer exposed | CPT/HCPCS: 97597 ==

== ENCOUNTER 2023-05-17 11:02 | Inpatient (IN) | payer MEDICARE, MEDICAID, SELFPAY ==
[2023-05-17] VITALS (8 sets, daily range): BP systolic 100–131; BP diastolic 55–73; PULSE 85–97; RESP 16–20; TEMP 37–37.8; O2SAT 91–95; BMI 29.2
[2023-05-17 11:16] LABS: Basophils # 0.1 10^3/uL (0.0-0.1); Basophils % 0.3 %; Eosinophils % 0.1 %; Hematocrit 36.7 % (36-47); Lymphocytes # 0.9 10^3/uL (0.8-4.8); Lymphocytes % 5.2 %; Mean Corpuscular HGB Conc 31.1 g/dL (30-55); Mean Corpuscular Hemoglobin 26.5 pg (27-33); Mean Corpuscular Volume 85.2 fl (85-98); Monocytes # 1.1 10^3/uL (0.2-0.9); Monocytes % 6.2 %; Neutrophils # 15.68 10^3/uL (1.8-7.7); Neutrophils % 87.4 %; Nucleated Red Blood Cells % 0 %; Platelet Count 202 10^3/cmm (157-399); Red Blood Count 4.31 10^6/uL (3.85-5.65); Red Cell Distribution Width 14.9 % (12.1-15.1); White Blood Count 17.92 10^3/uL (3.29-11.43)
--- NOTE | 2023-05-17 11:17 | CT_ITS ---
WS: [id number] CT ABDOMEN PELVIS TECHNIQUE: Contrast-enhanced CT of the abdomen and pelvis with coronal and sagittal reformatted image s. CLINICAL INFORMATION: abd pain COMPARISON: 2009 DLP: 742.[address] [facility] use at least one of these dose optimization techniques: automated e xposure control; mA and/or kV adjustment per patient size (includes targeted exams where dose is matc hed to clinical indication); or iterative reconstruction. FINDINGS: Prior hysterectomy. RIGHT JUSTINO degrades some images in the pelvis. Airspace infiltrates in the RIGHT l ower lobe with slight pleural fluid. Recommend correlation for pneumonia. Small amount of patchy infi ltrate LEFT lower lobe. Diffuse fatty infiltration of the liver. Normal spleen. Small esophageal hiat al hernia. Fatty atrophy of the pancreas. Splenic artery calcification. Prominent gallbladder calculu s in the gallbladder body measuring 12 mm. Normal portal vein and splenic vein. Adrenal glands are normal. Normal renal parenchymal enhancement. No hydronephrosis. A few small RIGHT renal cysts. Normal caliber abdominal aorta. Aortic calcificati on. Slightly aneurysmal distal abdominal aorta measuring 2.5 x 2.3 cm. Normal sigmoid colon. No evidence of high-grade small or large bowel obstruction. Disc space narrowin g worse L5-S1. No abdominal or pelvic lymphadenopathy. Fat-containing umbilical hernia. Small amount of thickening with surrounding induration and mucosal e nhancement involving the RIGHT colon and hepatic flexure suspicious for infectious or inflammatory co litis. No other suspicious findings. IMPRESSION: 1. Mild inflammatory stranding and induration about the RIGHT colon and hepatic flexure with submuco austen enhancement suspicious for infectious or inflammatory colitis. Recommend correlation with infecti ous symptoms. 2. Remainder of the colon appears normal. 3. Mild fluid distention of the gallbladder with prominent 12 mm calculus in the gallbladder body. N o gallbladder wall thickening or pericholecystic fluid. 4. Small esophageal hernia. 5. Small amount of fluid and airspace opacification in the RIGHT lower lobe. Recommend correlation f or pneumonia. Similar appearance is seen on prior studies dating back to 2019. Tiny amount of patchy infiltrate LEFT lower lobe.
--- NOTE | 2023-05-17 11:23 | ED_ITS ---
HPI - Nausea/Vomiting/Diarrhea General: Chief complaint: Nausea/Vomiting/Diarrhea Stated complaint: N/V/D Time Seen by Provider: 05/17/23 11:03 Source: patient and EMS Mode of arrival: EMS Limitations: no limitations History of Present Illness: 78-year-old female states she been having nausea vomiting along with diarrhea since last night. States she had multiple episodes of vomiting she states that she is having some abdominal cramping this morning as well. Patient received Zofran in route states she feels much improved she has no pain currently. Denies any fevers denies any blood in her stool or vomitus Associated nausea: Yes Associated symtoms: Reports nausea; Denies chest pain, dysuria or headache(s) Review of Systems Const: Denies: fever(s) or chills ENMT: Denies: throat pain or dental pain Card: Denies: chest pain Resp: Denies: dyspnea GI: Reports: nausea, vomiting and diarrhea; Denies: abdominal pain : Denies: dysuria Musc: Denies: neck pain or back pain Skin/Breast: Denies: rash Neuro: Denies: headache(s) PFSH ED PFSH: Medical History (Updated 05/17/23 @ 13:15 by Brit Barnett MD) CKD (chronic kidney disease) Stable COPD (chronic obstructive pulmonary disease) Coumadin resistance DVT (deep venous thrombosis) Neuropathy On home oxygen therapy Osteoarthritis Surgical History History of hysterectomy Family History Family/Other CAD (coronary artery disease) Social History Smoking and tobacco status: former smoker Quit status (tobacco): has quit using tobacco Alcohol intake: never Lives independently: Yes Physical Exam Const: COMMON NORMALS: no acute distress, patient oriented x3 and healthy appearing HENMT: COMMON NORMALS: normocephalic and atraumatic HEAD & SCALP: normocephalic and atraumatic Eye: COMMON NORMALS: conjunctivae normal CONJUNCTIVA: Yes conjunctivae normal Neck/C-Spine: COMMON NORMALS: full ROM and supple Chest: COMMONS NORMALS: normal inspection of the chest and normal palpation of entire chest wall Resp: COMMON NORMALS: normal respiratory effort, No retractions, No use of accessory muscles and clear to auscultation bilaterally AUSCULTATION: clear to auscultation bilaterally Cardio: COMMON NORMALS: regular rate, regular rhythm and No murmurs present (Cardio) RATE: regular rate RHYTHM: regular rhythm GI: COMMON NORMALS: Normal to inspection, nondistended, normoactive bowel sounds present, Soft to palpation, non-tender and no masses PALPATION: Yes Soft to palpation Extremity: COMMON NORMALS: normal to inspection and full ROM Neuro: COMMON NORMALS: patient oriented x3, moves all extremities and no focal motor deficits Psych: COMMON NORMALS: mental status grossly normal, Normal thought process present and cooperative THOUGHT PROCESS: Normal thought process present Skin: COMMON NORMALS: no rashes or lesions noted and no wounds GENERAL SKIN EXAM: no rashes or lesions noted Course Vital Signs: Vital signs: Vital Signs Temperature 98.6 F 05/17/23 11:04 Pulse Rate 88 05/17/23 12:06 Respiratory Rate 20 H 05/17/23 12:06 Blood Pressure 114/71 05/17/23 12:06 Pulse Oximetry 93 05/17/23 12:06 Oxygen Delivery Me thod Nasal Cannula 05/17/23 12:06 Oxygen Flow Rate 4 05/17/23 12:06 MDM - Nausea/Vomiting/Diarrhea Medical Decision Making Patient presents with vomiting, diarrhea some abdominal pain CT does show a colitis she has an elevated white count as well she had a hard time tolerating p.o. here with her nausea and vomiting will admit for IV antibiotics that she likely will not tolerate meds at home at this time. Medical Records I reviewed the patient's medical records. Lab Data I reviewed the patient's lab results. 05/17/23 11:10 05/17/23 11:10 Laboratory Results WBC 17.92 10^3/uL (3.29-11.43) H 05/17/23 11:10 RBC 4.31 10^6/uL (3.85-5.65) 05/17/23 11:10 Hgb 11.40 g/dL (11.27-16.99) 05/17/23 11:10 Hct 36.7 % (36-47) 05/17/23 11:10 MCV 85.2 fl (85-98) 05/17/23 11:10 MCH 26.5 pg (27-33) L 05/17/23 11:10 MCHC 31.1 g/dL (30-55) 05/17/23 11:10 RDW 14.9 % (12.1-15.1) 05/17/23 11:10 Plt Count 202 10^3/cmm (157-399) 05/17/23 11:10 MPV 11.0 fL (7.4-10.4) H 05/17/23 11:10 Neut % (Auto) 87.4 % 05/17/23 11:10 Lymph % (Auto) 5.2 % 05/17/23 11:10 [place] % (Auto) 6.2 % 05/17/23 11:10 Eos % (Auto) 0.1 % 05/17/23 11:10 Baso % (Auto) 0.3 % 05/17/23 11:10 Neut # (Auto) 15.68 10^3/uL (1.8-7.7) H 05/17/23 11:10 Lymph # (Auto) 0.9 10^3/uL (0.8-4.8) 05/17/23 11:10 [place] # (Auto) 1.1 10^3/uL (0.2-0.9) H 05/17/23 11:10 Eos # (Auto) 0.0 10^3/uL (0.0-0.8) 05/17/23 11:10 Baso # (Auto) 0.1 10^3/uL (0.0-0.1) 05/17/23 11:10 Nucleated RBC % (auto) 0 % 05/17/23 11:10 Nucleated RBCs # 0.0 /100WBC 05/17/23 11:10 Sodium 138 mmol/L (136-145) 05/17/23 11:10 Potassium 3.7 mmol/L (3.5-5.1) 05/17/23 11:10 Chloride 96 mmol/L (98-107) L 05/17/23 11:10 Carbon Dioxide 32 mmol/L (22-29) H 05/17/23 11:10 Anion Gap 13.7 (5-19) 05/17/23 11:10 BUN 19 mg/dL (8-23) 05/17/23 11:10 Creatinine 1.4 mg/dL (0.5-0.9) H 05/17/23 11:10 GFR Calculation Not Reportable 05/17/23 11:10 Glucose 142 mg/dL (65-115) H 05/17/23 11:10 Calculated Osmolality 291 mOsm/kg (285-295) 05/17/23 11:10 Calcium 9.2 mg/dL (8.5-10.5) 05/17/23 11:10 Total Bilirubin 1.5 mg/dL (0.15-1.2) H 05/17/23 11:10 AST 15 U/L (0-32) 05/17/23 11:10 ALT 8 U/L (0-33) 05/17/23 11:10 Alkaline Phosphatase 96 U/L (35-105) 05/17/23 11:10 Total Protein 7.0 g/dL (6.6-8.7) 05/17/23 11:10 Albumin 3.3 g/dL (3.5-5.2) L 05/17/23 11:10 Globulin 3.7 g/dL (1.3-4.6) 05/17/23 11:10 Lipase 12 U/L (13-60) L 05/17/23 11:10 Urine Color Yellow (Yellow) 05/17/23 12:16 Urine Appearance Clear (CLEAR) 05/17/23 12:16 Urine pH 5 (5-7) 05/17/23 12:16 Ur Specific [place] 1.010 (1.005-1.030) 05/17/23 12:16 Urine Protein Trace (Negative) 05/17/23 12:16 Urine Glucose (UA) Norm (Normal) 05/17/23 12:16 Urine Ketones Negative (Negative) 05/17/23 12:16 Urine Blood Neg (Negative) 05/17/23 12:16 Urine Nitrate Negative (Negative) 05/17/23 12:16 Urine Bilirubin 1+ (Negative) H 05/17/23 12:16 Urine Urobilinogen 1 mg/dL (Negative) H 05/17/23 12:16 Ur Leukocyte Esterase Trace (Negative) H 05/17/23 12:16 Urine RBC 0-4 /hpf (0-2) H 05/17/23 12:16 Urine WBC 0-4 /hpf (0-5) H 05/17/23 12:16 Ur Squamous Epith Cells 0-4 /hpf (0-5) H 05/17/23 12:16 Amorphous Sediment Not Reportable 05/17/23 12:16 Urine Bacteria None /hpf (NONE) 05/17/23 12:16 Urine Mucus 4+ /hpf 05/17/23 12:16 SARS-CoV-2 Ag (Rapid) negative (Negative) 05/17/23 11:31 Discharge Plan Discharge Patient Disposition: Admitted As Inpatient Clinical Impression: Colitis, Vomiting Condition: Stable Prescriptions: No Action Vitamin D2 1.25 MG tablet 1.25 mg PO Q7D Rx Instructions: (ON MONDAYS) atorvastatin 40 mg Tablet 40 mg PO DAILY furosemide 40 mg Tablet 40 mg PO DAILY gabapentin 100 mg Capsule 100 mg PO TID fluticasone propionate 50 mcg/actuation [place],Suspension 2 spray INTRANASAL DAILY metoprolol tartrate 50 mg Tablet 50 mg PO DAILY ipratropium-albuterol 0.5 mg-3 mg(2.5 mg base)/3 mL solution for nebulization 3 ml INHALATION Q6H PRN (Reason: shortness of breath or wheezing) Qty: 180 0RF fluticasone propion-salmeterol [Advair Diskus] 500-50 mcg/dose blister with device 1 inh INHALATION BID Qty: 60 0RF tiotropium bromide [Spiriva with HandiHaler] 18 mcg Capsule, W/Inhalation Device 1 cap INHALATION DAILY Eliquis 5 mg tablet 5 mg PO BID hydroxyzine HCl 25 mg tablet 25 mg PO DAILY Coding Level of Care Code 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
--- NOTE | 2023-05-17 11:26 | PC.NURSE ---
UPON ASKING PATIENT IDENTIFIERS BEFORE STARTING MEDS PT WAS STRUGGLING TO RECITE NAME BUT WAS FINALLY ABLE TO TELL IT, PT DOES NOT REMEMBER .
[2023-05-17] MEDS: ondansetron 2 mg/ML SDV 2 mL 4 MG IVP (11:28)
[2023-05-17] MEDS: sodium chloride 0.9% 500 ML IV (11:28)
[2023-05-17 11:45] LABS: Alanine Aminotransferase 8 U/L (0-33); Albumin Level 3.3 g/dL (3.5-5.2); Alkaline Phosphatase 96 U/L (35-105); Anion Gap 13.7 (5-19); Aspartate Amino Transferase 15 U/L (0-32); Blood Urea Nitrogen 19 mg/dL (8-23); Calcium 9.2 mg/dL (8.5-10.5); Carbon Dioxide 32 mmol/L (22-29); Chloride 96 mmol/L (98-107); Globulin 3.7 g/dL (1.3-4.6); Glucose 142 mg/dL (65-115); Lipase 12 U/L (13-60); Osmolality Calculated 291 mOsm/kg (285-295); Potassium 3.7 mmol/L (3.5-5.1); Sodium 138 mmol/L (136-145); Total Bilirubin 1.5 mg/dL (0.15-1.2)
[2023-05-17 12:06] LABS: SARS Covid-2 Antigen negative (Negative)
[2023-05-17] MEDS: iohexol 350 mg/mL 500 mL Btl (per mL) IV (12:24)
[2023-05-17 12:37] LABS: Add Urine Microscopic? YES; Bilirubin Urine 1+ (Negative); Blood Urine Neg (Negative); Glucose Urine UA Norm (Normal); Ketones Urine Negative (Negative); Leukocyte Esterase Urine Trace (Negative); Nitrate Urine Negative (Negative); Protein Urine Trace (Negative); Urine Appearance Clear (CLEAR); Urine Color Yellow (Yellow); Urobilinogen Urine 1 mg/dL (Negative); pH Urine 5 (5-7)
[2023-05-17 12:38] LABS: Add Urine Culture? No; Mucus Urine 4+ /hpf; RBC Urine 0-4 /hpf (0-2); Squamous Epithelial Cell Urine 0-4 /hpf (0-5); WBC Urine 0-4 /hpf (0-5)
--- NOTE | 2023-05-17 13:06 | XRR_ITS ---
PROCEDURE INFORMATION: Exam: XR Chest Exam date and time: 05/17/2023 1:07 PM Age: 78 years old Clinical indication: Cough; Prior surgery; Surgery date: 6+ months; Surgery type: Hyst; Patient HX: N/v/d.No history of trauma or recent surgery is provided. TECHNIQUE: Imaging protocol: Radiologic exam of the chest. 1image(s) are provided. Views: 1 view. COMPARISON: 1. CR XR chest 1V portable [id number] 06/11/2022 1:33 AM 2. CR XR chest 1V portable [id number] 09/15/2021 3:28 PM 3. CTA Chest-Pulmonary Emb [id number] 09/10/2019 10:30 PM FINDINGS: Lungs: There is some subsegmental atelectasis versus post inflammatory scarring demonstrated.No lobar type consolidation is appreciated. There is some calcified ovoid density type appearance about the right upper lung zone similar overall. There is however some subtle increased density of the peribronchial margins of the lung bases. Pleural spaces: There is some costophrenic angle blunting more so on the left similar overall. No pneumothorax is appreciated. Heart/Mediastinum: The cardiomediastinal silhouette is upper normal in size.This can be seen with central averaging as well as ayesha enlargement.No cardiac decompensation is appreciated. Diaphragm: The hemidiaphragms are symmetric. Bones/joints: Osseous alignment is maintained.No interval displaced fracture or dislocation is appreciated.There is slightly decreased bone mineralization overall. Soft tissues: No radiopaque foreign body or subcutaneous emphysema is appreciated. Other findings: There is chronic air trapping appearance similar overall. No other significant interval changes are appreciated. XR/XR chest 1V portable [id number] IMPRESSION: There is chronic air trapping scarring appearance similar overall albeit with increased peribronchovascular attenuation indicative of some early peribronchial inflammation of the lung bases.
[2023-05-17] MEDS: metroNIDAZOLE IV 500 MG/100 ML PREMIX 100 MG IV (13:55)
[2023-05-17] MEDS: ciprofloxacin 400 MG/200 ML PREMIX 200 MG IV (13:55)
[2023-05-17 15:37] LABS: Procalcitonin 0.48 ng/mL (0-0.5)
[2023-05-17] MEDS: pantoprazole 40 mg SDV IVP (17:17)
[2023-05-17] MEDS: gabapentin 100 mg Capsule PO ×2 (17:17→20:34)
[2023-05-17 17:18] LABS: Thyroid Stimulating Hormone 1.29 uIU/mL (0.27-4.20); Vitamin B12 228 pg/mL (232-1245)
[2023-05-17] MEDS: apixaban 5 mg Tablet PO (17:18)
[2023-05-17] MEDS: sodium chloride 0.9% 1,000 ML 75 ML IV (17:21)
--- NOTE | 2023-05-17 17:35 | PM.HP ---
Providers/Chief Complaint Admitting Physician: Cory Gutiérrez MD Chief Complaint: N/V/D History of Present Illness History taken through patient's daughter Ms. Salmon over the phone. Wanda Santiago is a 78 year old female with past medical history of COPD on home oxygen program, pulmonary embolism on chronic anticoagulation, hypertension, CKD with baseline creatinine of around 1.4 who was brought into the ER today. As per ER physician patient came to the hospital because of nausea, vomiting and abdominal pain. Patient was found to have colitis on CT abdomen pelvis. On talking with patient she is not sure why she is in the hospital though she is oriented to self but seems slightly confused. As per the daughter patient has been getting more confused which is not her baseline for last 2 to 3 days along with episodes of nausea and vomiting and requiring higher oxygen than baseline for last 24 hours. As per daughter she had to put her oxygen supplementation higher for last 24 hours as saturations were not maintained over 95%. Daughter had to turn her up to 4 L. Daughter denies any sick contact, diarrhea, chest pain Review of Systems General: Reports: ROS unobtainable due to mental status Medications/Allergies Home Medications Medication Instructions Recorded Confirmed Last Taken Type Vitamin D2 1.25 mg PO Q7D 09/11/19 05/17/23 05/15/23 History atorvastatin 40 mg tablet 40 mg PO DAILY 09/11/19 05/17/23 05/17/23 History fluticasone propionate 50 2 spray intranasal DAILY 09/11/19 05/17/23 05/17/23 History mcg/actuation nasal spray,suspension furosemide 40 mg tablet 40 mg PO DAILY 09/11/19 05/17/23 05/17/23 History gabapentin 100 mg capsule 100 mg PO TID 09/11/19 05/17/23 05/17/23 History metoprolol tartrate 50 mg tablet 50 mg PO DAILY 09/11/19 05/17/23 05/17/23 History fluticasone 500 mcg-salmeterol 50 1 inh inhalation BID #60 ea 09/13/19 05/17/23 05/17/23 Rx mcg/dose blistr powdr for inhalation (Advair Diskus) ipratropium 0.5 mg-albuterol 3 mg 3 ml inhalation Q6H PRN shortness 09/13/19 05/17/23 12/24/19 Rx (2.5 mg base)/3 mL nebulization of breath or wheezing #180 mL soln apixaban 5 mg tablet (Eliquis) 5 mg PO BID 12/24/19 05/17/23 05/17/23 History tiotropium bromide 18 mcg capsule 1 cap inhalation DAILY 12/24/19 05/17/23 05/17/23 History with inhalation device (Spiriva with HandiHaler) hydroxyzine HCl 25 mg tablet 25 mg PO DAILY 05/17/23 05/17/23 05/17/23 History Allergies Allergy/AdvReac Type Severity Reaction Status Date / Time piperacillin [From Zosyn] Allergy Intermediate TURNED RED Verified 05/17/23 11:20 tazobactam [From Zosyn] Allergy Intermediate TURNED RED Verified 05/17/23 11:20 PFSH Acute PFSH: Medical History (Updated 05/18/23 @ 13:50 by Cory Gutiérrez MD) CKD (chronic kidney disease) Stable COPD (chronic obstructive pulmonary disease) Coumadin resistance DVT (deep venous thrombosis) Neuropathy On home oxygen therapy Osteoarthritis Surgical History History of hysterectomy Family History Family/Other CAD (coronary artery disease) Social History Smoking and tobacco status: former smoker Quit status (tobacco): has quit using tobacco Alcohol intake: never Lives independently: Yes Vitals/I&O/Wt Last Vital Signs Temp 98.6 F 05/17/23 11:04 Pulse 96 05/17/23 14:00 Resp 20 H 05/17/23 12:06 BP 121/70 05/17/23 14:00 Pulse Ox 95 05/17/23 14:00 O2 Del Method Nasal Cannula 05/17/23 14:00 O2 Flow Rate 4 05/17/23 14:00 Weight last 48 hrs Weight 77.111 kg Physical Exam Narrative: General: No acute distress, pleasant, confused, AO x1-2 HEENT: PERRLA, pupils bilaterally equal and reactive Chest: Bilateral bronchial breath sounds all over lung melvin with occasional rhonchi and fine crackles CVS: S1-S2 regular, no murmurs, no tachycardia, no gallops, no rubs Abdomen: Soft, obese, nontender, no organomegaly, bowel sounds present but sluggish Neuro: No focal deficits, no facial deformity, moving all limbs Data 05/18/23 04:10 05/18/23 04:10 Micro: Microbiology 05/17/23 13:31 Blood Culture - Preliminary Blood SPECIMEN COLLECTED 05/17/23 13:31 Blood Culture - Preliminary Blood SPECIMEN COLLECTED A&P Assessment and plan (1) AMS (altered mental status): (2) Hypoxia: (3) Community acquired pneumonia: Qualifiers: Laterality: unspecified laterality Qualified Code(s): J18.9 - Pneumonia, unspecified organism (4) Colitis: (5) Gallbladder calculus: (6) Hypertension: (7) Pulmonary embolism: (8) COPD with acute exacerbation: (9) On home oxygen therapy: (10) CKD (chronic kidney disease): (11) Vomiting: Plan 78-year-old female admitted with history of COPD and pulm embolism on home oxygen with altered mental status with concerns for worsening hypoxia found to have possible pneumonia and colitis on imaging with leukocytosis. Altered mental status: Most likely in setting of hypoxia and infectious process from pneumonia and colitis. Check sputum culture, stool studies, MRSA swab, respiratory viral panel. Follow-up blood cultures. For now start patient on IV meropenem. CT chest without contrast for further evaluation of consolidation. Oxygen supplementation keeping saturation over 90%. DuoNebs every 6 hour, budesonide twice daily For now start patient on clear liquid diet. If tolerating will switch to soft diet. Gallbladder distention with calculus: Seems nonobstructive on CT abdomen pelvis. Liver function test normal though mild bilirubinemia. Check HIDA scan. Exam negative for cholecystitis. COPD/history of pulmonary embolism: Nebulization as above. No COPD exacerbation so we will hold off on steroids. Continue with home dose of Eliquis. CKD: Baseline creatinine seems to be 1.4-1.6. Medical reconciliation done for nephrotoxic drugs. Monitor BMP daily. Hypertension: Goal blood pressure less than 140/90 mmHg. Continue with home dose of metoprolol. CODE STATUS: Discussed in detail with patient's daughter/DPOA Ms. Salmon over the phone number [phone]. Full code. Clear liquid diet Eliquis will suffice for DVT prophylaxis Protonix for PUD prophylaxis Attestations Medical Necessity Statement*: Admission for more than 2 midnights for management of altered mental status and hypoxia in setting of community-acquired pneumonia and colitis while gallbladder pathology is ruled out Diagnoses AMS (altered mental status) R41.82 Hypoxia R09.02 Community acquired pneumonia J18.9 Laterality: unspecified laterality Colitis K52.9 Gallbladder calculus K80.20 Hypertension I10 Pulmonary embolism I26.99 COPD with acute exacerbation J44.1 On home oxygen therapy Z99.81 CKD (chronic kidney disease) N18.9 Vomiting R11.10
[2023-05-17 18:03] LABS: Iron 29 ug/dL (37-145); Total Iron Binding Capacity 262 mcg/dl; Unsaturated Iron Binding 233 ug/dL (112-347)
--- NOTE | 2023-05-17 22:26 | CTR_ITS ---
PROCEDURE INFORMATION: Exam: CT Chest Without Contrast; Diagnostic Exam date and time: 05/18/2023 1:41 AM Age: 78 years old Clinical indication: Other: Pna TECHNIQUE: Imaging protocol: Diagnostic computed tomography of the chest without contrast. Radiation optimization: All CT scans at this facility use at least one of these dose optimization techniques: automated exposure control; mA and/or kV adjustment per patient size (includes targeted exams where dose is matched to clinical indication); or iterative reconstruction. REPORTING DATA: Count of CT and Cardiac NM exams in prior 12 months: This patient has received [address] and 0 known cardiac nuclear medicine studies in the 12 months prior to the current study. COMPARISON: CR XR chest 1V portable [id number] 05/17/2023 1:07 PM RADIATION DOSE METRICS: Total DLP (mGy-cm): 478.08 FINDINGS: Thyroid: Unremarkable thyroid lobes. Lungs: Centrilobular emphysema. Pulmonary hyperinflation. Patchy irregular peripheral airspace opacity in the posteroinferior left lobe. Patchy irregular opacities in the right middle lobe. Consolidation in the posterior right upper lobe and right lower lobe. Endobronchial opacities in the segmental and subsegmental bronchi most significant in the right lower lobe. Negative for peripheral honeycombing. Large circumscribed ovoid calcified structure in the posterior right upper lobe redemonstrated stable from comparison. Pleural spaces: Unremarkable. No pneumothorax. No pleural effusion. Heart: Unremarkable. No cardiomegaly. No pericardial effusion. Coronary arteries: Large volume coronary artery calcifications. Mediastinal space: Unremarkable thoracic esophagus. Lymph nodes: Unremarkable. No enlarged lymph nodes. Vasculature: Diffuse thoracic aortic calcified plaques. Negative for aneurysm. Gallbladder and bile ducts: Cholelithiasis. Contracted gallbladder. Negative for biliary dilation. Bones/joints: Unremarkable. No acute fracture. Soft tissues: Unremarkable. CT/CT chest wo con [id number] IMPRESSION: Multifocal pneumonia suspected.
[2023-05-17] MEDS: meropenem 1,000 MG in sodium chloride 0.9% (plus) 50 ML 100 MG IV (23:09)
[2023-05-18] VITALS (13 sets, daily range): BP systolic 102–124; BP diastolic 59–86; PULSE 70–90; RESP 14–18; TEMP 36.6–37.4; O2SAT 93–98
[2023-05-18 05:08] LABS: Basophils % 0.2 %; Hematocrit 30.9 % (36-47); Lymphocytes # 1.1 10^3/uL (0.8-4.8); Lymphocytes % 6.7 %; Mean Corpuscular HGB Conc 31.7 g/dL (30-55); Mean Corpuscular Hemoglobin 26.7 pg (27-33); Mean Corpuscular Volume 84.2 fl (85-98); Mean Platelet Volume 11.2 fL (7.4-10.4); Monocytes # 1.1 10^3/uL (0.2-0.9); Monocytes % 6.9 %; Neutrophils # 13.64 10^3/uL (1.8-7.7); Neutrophils % 85.4 %; Nucleated Red Blood Cells % 0 %; Platelet Count 150 10^3/cmm (157-399); Red Blood Count 3.67 10^6/uL (3.85-5.65); White Blood Count 15.97 10^3/uL (3.29-11.43)
[2023-05-18 05:31] LABS: Alanine Aminotransferase 8 U/L (0-33); Albumin Level 2.6 g/dL (3.5-5.2); Alkaline Phosphatase 80 U/L (35-105); Aspartate Amino Transferase 14 U/L (0-32); Blood Urea Nitrogen 20 mg/dL (8-23); Calcium 8.3 mg/dL (8.5-10.5); Carbon Dioxide 32 mmol/L (22-29); Chloride 99 mmol/L (98-107); Globulin 3.3 g/dL (1.3-4.6); Glucose 122 mg/dL (65-115); Magnesium 1.9 mg/dL (1.7-2.3); Osmolality Calculated 288 mOsm/kg (285-295); Phosphorus 2.6 mg/dL (2.5-4.5); Sodium 137 mmol/L (136-145); Total Bilirubin 1.1 mg/dL (0.15-1.2); Total Protein 5.9 g/dL (6.6-8.7)
[2023-05-18 05:33] LABS: Chol HDL Ratio 1.96 mg/dL (0.0-4.40); Cholesterol 88 mg/dL (0-200); HDL Cholesterol 45 mg/dL (60-100); LDL Cholesterol Calculated 30 mg/dL (50-129); LDL HDL Ratio 0.67 RATIO (0.00-3.22); Triglycerides 64 mg/dL (0-150)
[2023-05-18] MEDS: meropenem 1,000 MG in sodium chloride 0.9% (plus) 50 ML 100 MG IV ×2 (05:35→17:13)
[2023-05-18 05:46] LABS: Estmated Average Glucose 117; Hemoglobin A1C 5.7 % (4.0-6.0)
[2023-05-18 05:47] LABS: Folate Level < 20.0 ng/mL (4.8-37.3)
[2023-05-18] MEDS: cyanocobalamin 1,000 mcg/mL SDV 1000 MCG IM (08:08)
[2023-05-18] MEDS: fluticasone nasal spray 16gm Btl 2 SPRAY INTRANASAL (08:08)
[2023-05-18] MEDS: sodium chloride 0.9% 1,000 ML 75 ML IV ×2 (08:47→22:06)
[2023-05-18] MEDS: apixaban 5 mg Tablet PO ×2 (09:37→17:12)
[2023-05-18] MEDS: atorvastatin 40 mg Tablet PO (09:37)
[2023-05-18] MEDS: hyDROXYzine 25 mg Capsule PO (09:37)
[2023-05-18] MEDS: gabapentin 100 mg Capsule PO ×3 (09:37→21:58)
[2023-05-18] MEDS: metoprolol tartrate 50 mg Tablet PO (09:37)
--- NOTE | 2023-05-18 10:04 | PC.CHAP ---
Pastoral Care Encounter/Spiritual Assessment Type of Contact [] Declined substitute bus driver visit [] Patient/Family/Request visit [] Outpatient visit [] Follow-up visit [] Physician referral [] Code/Alert [x] Routine visit [] Staff referral [] Actively dying [] Patient sleeping [] Family support [] [] Out of room [] Palliative care [] [x] Receiving care in room [] Pre-surgical visit [] Trauma [] Long length of stay [] ICU visit [] Other: Relational/Emotional Strength [x] Patient feels connected with others/family/visitors/staff [] Distress [] Loneliness/isolation [] Abandonment Spirituality of Patient [x] Person of Valorie [] Attends Mandaen of their Valorie [x] Believes in Prayer [] Reads Bible or Episcopalian materials [] There are Spiritual issues to be addressed Internal Grinder Set Up Operator Interventions [x] Prayer [x] Active listening [x] Non-anxious presence [x] Spiritual/emotional support [] Crisis/trauma care [x] Spiritual counseling [] Bereavement support [] Provided bereavement packet [] Provided Bible/devotional materials [] Provided toy/stuffed animal, coloring book to patient or family member [] Provided Communion [] Anointing/[place] [] Salvation [x] Completed spiritual assessment [] Other: Impact on Illness or Injury [] Angry [] Fearful [] Anxious [] Often cries [] Exhaustion [] Unable to work [] Unable to attend roman catholic [] Unable to walk/stand [] Unable to read [] Unable to drive [] Unable to eat/drink [] Unable to sleep [] Unable to be with family [] Patient intubated [] Other: Summary waitin on the results of the tests not sure about what needs to be done or when she well go home Time spent with patient 10 mins
--- NOTE | 2023-05-18 12:00 | NM_ITS ---
WS: [id number] NUCLEAR MEDICINE HIDA SCAN WITH GALLBLADDER EJECTION FRACTION HISTORY: Distended gallbladder COMPARISON: CT abdomen 05/17/2023 TECHNIQUE: The patient was intravenously injected with 8.2 mCi of TC99m Mebrofenin. Immediate imaging over the right upper quadrant was followed by 5 minute image and additional images for a total of 60 minutes. Normal uptake of radiotracer throughout the liver. Activity identified in the gallbladder at 40 minutes and well distended by 60 minutes. Activity in the proximal small bowel was seen by 15 minutes. Good washout of the radiotracer from the liver by 60 minutes. The patient then drank 8 ounces of Ensure Plus. Ejection fraction at 60 minutes was 37%. Normal GB ej ection fraction is 35-75%. Post fatty meal symptoms: None. IMPRESSION: 1. Normal HIDA scan. 2. Low normal gallbladder ejection fraction.
--- NOTE | 2023-05-18 14:03 | P.PN_ITS ---
Subjective Subjective: Noted events overnight. Today morning examination patient laying comfortably in bed. States she wants to get up and sit up in chair if possible. Afraid to do so as whenever she would move the bed would be. Patient seems slightly more awake than yesterday. No bowel movement since admission. Tolerating clear liquid diet without vomiting Blood work shows leukocytosis, mild anemia with hemoglobin of 9.8 with platelet count down to 150 from 202 on admission. Labs concerning for mild elevation. CMP showing mild hypokalemia, creatinine 1.6, A1c of 5.7, vitamin B12 deficiency Vitals/I&O/Wt Last Vital Signs Temp 98.3 F 05/18/23 11:26 Pulse 70 05/18/23 11:26 Resp 16 05/18/23 11:26 BP 118/65 05/18/23 11:26 Pulse Ox 98 05/18/23 11:26 O2 Del Method Nasal Cannula 05/18/23 11:26 O2 Flow Rate 4 05/18/23 09:30 05/17/23 05/18/23 05/18/23 22:59 06:59 14:59 Intake Total 800 / 800 1100 / 1900 240 / 240 Balance 800 / 800 1100 / 1900 240 / 240 Weight last 48 hrs Weight 77.111 kg Physical Exam Narrative: General: No acute distress, pleasant, confused, AO x1-2 HEENT: PERRLA, pupils bilaterally equal and reactive Chest: Bilateral bronchial breath sounds all over lung melvin with occasional rhonchi and fine crackles CVS: S1-S2 regular, no murmurs, no tachycardia, no gallops, no rubs Abdomen: Soft, obese, nontender, no organomegaly, bowel sounds present but sluggish Neuro: No focal deficits, no facial deformity, moving all limbs Data 05/18/23 04:10 05/18/23 04:10 Micro: Microbiology 05/17/23 13:31 Blood Culture - Preliminary Blood NEGATIVE TO DATE 05/17/23 13:31 Blood Culture - Preliminary Blood NEGATIVE TO DATE A&P Assessment and plan (1) AMS (altered mental status): (2) Hypoxia: (3) Community acquired pneumonia: Qualifiers: Laterality: unspecified laterality Qualified Code(s): J18.9 - Pneumonia, unspecified organism (4) Colitis: (5) Gallbladder calculus: (6) Hypertension: (7) Pulmonary embolism: (8) COPD with acute exacerbation: (9) On home oxygen therapy: (10) CKD (chronic kidney disease): (11) Vomiting: (12) B12 deficiency: Plan 78-year-old female admitted with history of COPD and pulm embolism on home oxygen with altered mental status with concerns for worsening hypoxia found to have possible pneumonia and colitis on imaging with leukocytosis. Altered mental status: Most likely in setting of hypoxia and infectious process from pneumonia and colitis. Concern for aspiration pneumonia most likely in setting of vomiting Follow-up sputum culture, stool studies, MRSA swab, respiratory viral panel, blood cultures. Continue with IV meropenem. Renal dosing. If worsening mentation or hemodynamics will add vancomycin. Oxygen supplementation keeping saturation over 90%. DuoNebs every 6 hour, budesonide twice daily Advance diet to mechanical soft. Monitor for aspiration. Aspiration precautions Gallbladder distention with calculus: Seems nonobstructive on CT abdomen pelvis. Liver function test normal. Bilirubin normal today. HIDA scan negative for acute abnormality. Exam negative for cholecystitis. Hold off on MRCP for now. COPD/history of pulmonary embolism: Nebulization as above. No COPD exacerbation so we will hold off on steroids. Continue with home dose of Eliquis. CKD: Baseline creatinine seems to be 1.4-1.6. Medical reconciliation done for nephrotoxic drugs. Monitor BMP daily. Strict input output charting. Mild hypokalemia today. Repleted with 40 mg of oral potassium. Hypertension: Goal blood pressure less than 140/90 mmHg. Continue with home dose of metoprolol. B12 deficiency CODE STATUS: Discussed in detail with patient's daughter/DPOA Ms. Salmon over the phone number [phone]. Full code. Advance to mechanical soft diet Eliquis will suffice for DVT prophylaxis Protonix for PUD prophylaxis Attestations Medical Necessity Statement*: Requires further hospitalization for management of altered mental status in sett ing of pneumonia and colitis Diagnoses AMS (altered mental status) R41.82 Hypoxia R09.02 Community acquired pneumonia J18.9 Laterality: unspecified laterality Colitis K52.9 Gallbladder calculus K80.20 Hypertension I10 Pulmonary embolism I26.99 COPD with acute exacerbation J44.1 On home oxygen therapy Z99.81 CKD (chronic kidney disease) N18.9 Vomiting R11.10 B12 deficiency E53.8
[2023-05-18] MEDS: potassium chloride ER 20 mEq Tablet 40 MEQ PO (14:22)
[2023-05-18] MEDS: ipratropium-albuterol 3 mL Neb INHALATION ×2 (15:29→20:24)
[2023-05-18] MEDS: pantoprazole 40 mg SDV IVP (15:38)
[2023-05-18 18:01] LABS: Adenovirus Not Detected (NOT DETECT); Chlamydia Pneumoniae Not Detected (NOT DETECT); Coronavirus 229E,HKU1,NL63,OC4 Not Detected (NOT DETECT); Human Metapneumovirus Not Detected (NOT DETECT); Human Rhinovirus/Enterovirus Not Detected (NOT DETECT); Influenza A Not Detected (NOT DETECT); Influenza A H1 Not Detected (NOT DETECT); Influenza A H1-2009 Not Detected (NOT DETECT); Influenza A H3 Not Detected (NOT DETECT); Influenza B Not Detected (NOT DETECT); Mycoplasma Pneumoniae Not Detected (NOT DETECT); Parainfluenza Virus Type 1 Not Detected (NOT DETECT); Parainfluenza Virus Type 2 Not Detected (NOT DETECT); Parainfluenza Virus Type 3 Not Detected (NOT DETECT); Parainfluenza Virus Type 4 Not Detected (NOT DETECT); Respiratory Syncytial Virus A Not Detected (NOT DETECT); Respiratory Syncytial Virus B Not Detected (NOT DETECT); SARS-COV-2 Not Detected (NOT DETECT)
[2023-05-18] MEDS: budesonide 0.5 mg/2 mL Neb INHALATION (20:23)
[2023-05-19] VITALS (16 sets, daily range): BP systolic 97–130; BP diastolic 58–72; PULSE 71–100; RESP 15–17; TEMP 36.7–37.1; O2SAT 92–98
[2023-05-19] MEDS: ipratropium-albuterol 3 mL Neb INHALATION ×4 (03:28→21:26)
[2023-05-19] MEDS: meropenem 1,000 MG in sodium chloride 0.9% (plus) 50 ML 100 MG IV ×2 (05:56→18:42)
[2023-05-19] MEDS: budesonide 0.5 mg/2 mL Neb INHALATION ×2 (08:27→21:26)
[2023-05-19] MEDS: gabapentin 100 mg Capsule PO ×3 (09:33→22:08)
[2023-05-19] MEDS: apixaban 5 mg Tablet PO ×2 (09:33→18:42)
[2023-05-19] MEDS: atorvastatin 40 mg Tablet PO (09:33)
[2023-05-19] MEDS: metoprolol tartrate 50 mg Tablet PO (09:33)
[2023-05-19] MEDS: hyDROXYzine 25 mg Capsule PO (09:33)
[2023-05-19] MEDS: cyanocobalamin 1,000 mcg/mL SDV 1000 MCG IM (09:34)
[2023-05-19] MEDS: fluticasone nasal spray 16gm Btl 2 SPRAY INTRANASAL (09:34)
[2023-05-19] MEDS: sodium chloride 0.9% 1,000 ML 75 ML IV (11:45)
--- NOTE | 2023-05-19 12:49 | P.PN_ITS ---
Subjective Subjective: No acute events overnight. Today morning examination patient is a lot more awake and alert. She is back to her baseline. Able to have complete conversation. Denies any nausea, vomiting, headache. Has remained hemodynamically stable and afebrile. Saturating well over 95% on 4 L oxygen supplementation. Given lab holiday today. Vitals/I&O/Wt Last Vital Signs Temp 98.1 F 05/19/23 11:17 Pulse 71 05/19/23 11:17 Resp 17 05/19/23 11:17 BP 100/61 05/19/23 11:17 Pulse Ox 96 05/19/23 11:17 O2 Del Method Nasal Cannula 05/19/23 08:20 O2 Flow Rate 4 05/19/23 08:20 05/18/23 05/19/23 05/19/23 22:59 06:59 14:59 Intake Total 1528.75 / 1768.75 1530 / 1530 Output Total 200 / 200 Balance 1528.75 / 1768.75 -200 / 1568.75 1530 / 1530 Weight last 48 hrs Weight 99.592 kg Weight 97.522 kg Physical Exam Narrative: General: No acute distress, pleasant, AO x2-3 HEENT: PERRLA, pupils bilaterally equal and reactive Chest: Bilateral bronchial breath sounds all over lung melvin with occasional rhonchi and fine crackles CVS: S1-S2 regular, no murmurs, no tachycardia, no gallops, no rubs Abdomen: Soft, obese, nontender, no organomegaly, bowel sounds present but sluggish Neuro: No focal deficits, no facial deformity, moving all limbs Data 05/18/23 04:10 05/18/23 04:10 Micro: Microbiology 05/17/23 18:42 Stool Lactoferrin - Final Stool 05/18/23 09:10 Gram Stain - Final Sputum - Expectorated Sputum 05/17/23 13:31 Blood Culture - Preliminary Blood NEGATIVE TO DATE 05/17/23 13:31 Blood Culture - Preliminary Blood NEGATIVE TO DATE A&P Assessment and plan (1) AMS (altered mental status): (2) Hypoxia: (3) Community acquired pneumonia: Qualifiers: Laterality: unspecified laterality Qualified Code(s): J18.9 - Pneumonia, unspecified organism (4) Colitis: (5) Gallbladder calculus: (6) Hypertension: (7) Pulmonary embolism: (8) COPD with acute exacerbation: (9) On home oxygen therapy: (10) CKD (chronic kidney disease): (11) Vomiting: (12) B12 deficiency: Plan 78-year-old female admitted with history of COPD and pulm embolism on home oxyge n with altered mental status with concerns for worsening hypoxia found to have possible pneumonia and colitis on imaging with leukocytosis. Altered mental status: Most likely in setting of hypoxia and infectious process from pneumonia and colitis. Concern for aspiration pneumonia most likely in setting of vomiting Follow-up sputum culture, stool studies, MRSA swab, respiratory viral panel, blood cultures. Continue with IV meropenem. Renal dosing. If worsening mentation or hemodynamics will add vancomycin. Oxygen supplementation keeping saturation over 90%. DuoNebs every 6 hour, budesonide twice daily Advance diet to mechanical soft. Monitor for aspiration. Aspiration precautions Gallbladder distention with calculus: Seems nonobstructive on CT abdomen pelvis. Liver function test normal. Bilirubin normal today. HIDA scan negative for acute abnormality. Exam negative for cholecystitis. Hold off on MRCP for now. COPD/history of pulmonary embolism: Nebulization as above. No COPD exacerbation so we will hold off on steroids. Continue with home dose of Eliquis. CKD: Baseline creatinine seems to be 1.4-1.6. Medical reconciliation done for nephrotoxic drugs. Monitor BMP daily. Strict input output charting. Mild hypokalemia today. Repleted with 40 mg of oral potassium. Hypertension: Goal blood pressure less than 140/90 mmHg. Continue with home dose of metoprolol. B12 deficiency CODE STATUS: Discussed in detail with patient's daughter/DPOA Ms. Salmon over the phone number [phone]. Full code. Advance to mechanical soft diet Eliquis will suffice for DVT prophylaxis Protonix for PUD prophylaxis Plan for the day: Physical therapy evaluation. Continue with IV meropenem. Continue with mechanical soft diet. Oxygen supplementation keeping saturation over 90%. Wean accordingly. Follow-up blood culture, sputum culture, stool studies. If patient continues to remain hemodynamically stable, mentation at baseline we will plan to discharge the next 24 hours to home on oral antibiotics. Out of bed to chair. Attestations Medical Necessity Statement*: Requires further hospitalization for management and resolution of altered mental status in setting of pneumonia, colitis while safe discharge planning is sought. Diagnoses AMS (altered mental status) R41.82 Hypoxia R09.02 Community acquired pneumonia J18.9 Laterality: unspecified laterality Colitis K52.9 Gallbladder calculus K80.20 Hypertension I10 Pulmonary embolism I26.99 COPD with acute exacerbation J44.1 On home oxygen therapy Z99.81 CKD (chronic kidney disease) N18.9 Vomiting R11.10 B12 deficiency E53.8
[2023-05-19 13:24] LABS: Methicillin-Resist S.aureu PCR NOT DETECTED (NOT DETECTED)
[2023-05-19] MEDS: pantoprazole 40 mg SDV IVP (15:27)
[2023-05-20] VITALS (7 sets, daily range): BP systolic 114–148; BP diastolic 64–75; PULSE 73–93; RESP 15–18; TEMP 36.8; O2SAT 95–99
[2023-05-20] MEDS: ipratropium-albuterol 3 mL Neb INHALATION ×2 (01:59→08:01)
[2023-05-20] MEDS: sodium chloride 0.9% 1,000 ML 75 ML IV (03:02)
[2023-05-20 05:10] LABS: Basophils % 0.3 %; Eosinophils # 0.3 10^3/uL (0.0-0.8); Eosinophils % 3.9 %; Hematocrit 30.1 % (36-47); Lymphocytes # 0.7 10^3/uL (0.8-4.8); Lymphocytes % 10.3 %; Mean Corpuscular HGB Conc 30.2 g/dL (30-55); Mean Corpuscular Hemoglobin 26.3 pg (27-33); Mean Platelet Volume 10.8 fL (7.4-10.4); Monocytes # 0.7 10^3/uL (0.2-0.9); Monocytes % 9.3 %; Neutrophils # 5.27 10^3/uL (1.8-7.7); Neutrophils % 75.6 %; Nucleated Red Blood Cells % 0 %; Platelet Count 143 10^3/cmm (157-399); Red Blood Count 3.46 10^6/uL (3.85-5.65); White Blood Count 6.97 10^3/uL (3.29-11.43)
[2023-05-20 05:36] LABS: Alanine Aminotransferase 9 U/L (0-33); Albumin Level 2.5 g/dL (3.5-5.2); Alkaline Phosphatase 63 U/L (35-105); Anion Gap 11.5 (5-19); Aspartate Amino Transferase 15 U/L (0-32); Blood Urea Nitrogen 15 mg/dL (8-23); Calcium 7.7 mg/dL (8.5-10.5); Carbon Dioxide 27 mmol/L (22-29); Chloride 106 mmol/L (98-107); Globulin 2.4 g/dL (1.3-4.6); Glucose 89 mg/dL (65-115); Osmolality Calculated 292 mOsm/kg (285-295); Potassium 3.5 mmol/L (3.5-5.1); Sodium 141 mmol/L (136-145); Total Bilirubin 0.5 mg/dL (0.15-1.2); Total Protein 4.9 g/dL (6.6-8.7)
[2023-05-20] MEDS: meropenem 1,000 MG in sodium chloride 0.9% (plus) 50 ML 100 MG IV (06:58)
[2023-05-20] MEDS: budesonide 0.5 mg/2 mL Neb INHALATION (08:01)
[2023-05-20] MEDS: hyDROXYzine 25 mg Capsule PO (08:35)
[2023-05-20] MEDS: metoprolol tartrate 50 mg Tablet PO (08:35)
[2023-05-20] MEDS: apixaban 5 mg Tablet PO (08:35)
[2023-05-20] MEDS: atorvastatin 40 mg Tablet PO (08:35)
[2023-05-20] MEDS: gabapentin 100 mg Capsule PO (08:35)
[2023-05-20] MEDS: fluticasone nasal spray 16gm Btl 2 SPRAY INTRANASAL (08:44)
[2023-05-20] MEDS: cyanocobalamin 1,000 mcg/mL SDV 1000 MCG IM (08:45)
--- NOTE | 2023-05-20 11:30 | PC.SOCIAL ---
Pg 2 IMM Explained to pt's son Pg 2 IMM. No questions voiced. Provided pt a copy. Initialed, dated, & timed a copy & placed in chart.
--- NOTE | 2023-05-20 13:38 | P.DS_ITS ---
Discharge Providers Date of Admission: 05/17/23 14:02 Date of Discharge: May 20, 2023 Attending Provider at Admission: Cory Gutiérrez MD Attending Provider at Discharge: Cory Gutiérrez MD Diagnoses at Discharge Discharge Diagnosis (1) AMS (altered mental status): Status: Acute (2) Hypoxia: Status: Acute (3) Community acquired pneumonia: Status: Acute Qualifiers: Laterality: unspecified laterality Qualified Code(s): J18.9 - Pneumon ia, unspecified organism (4) Colitis: Status: Acute (5) Gallbladder calculus: Status: Acute (6) Hypertension: Status: Acute Permanent problem details: Controlled (7) Pulmonary embolism: Status: Acute Permanent problem details: Currently on Eliquis (8) COPD with acute exacerbation: Status: Acute (9) On home oxygen therapy: Status: Acute (10) CKD (chronic kidney disease): Status: Acute Permanent problem details: Stable (11) Vomiting: Status: Acute (12) B12 deficiency: Status: Acute Reason for Visit Reason for Visit: N/V/D Hospital Course Hospital Course History taken through patient's daughter Ms. Salmon over the phone. Wanda Santiago is a 78 year old female with past medical history of COPD on home oxygen program, pulmonary embolism on chronic anticoagulation, hypertension, CKD with baseline creatinine of around 1.4 who was brought into the ER today. As per ER physician patient came to the hospital because of nausea, vomiting and abdominal pain.? Patient was found to have colitis on CT abdomen pelvis. On talking with patient she is not sure why she is in the hospital though she is oriented to self but seems slightly confused. As per the daughter patient has been getting more confused which is not her baseline for last 2 to 3 days along with episodes of nausea and vomiting and requiring higher oxygen than baseline for last 24 hours.? As per daughter she had to put her oxygen supplementation higher for last 24 hours as saturations were not maintained over 95%.? Daughter had to turn her up to 4 L.? Daughter denies any sick contact, diarrhea, chest pain. Patient was admitted to the hospital for further evaluation and management for above-stated complaints. She was started on broad-spectrum antibiotics. For hypoxia and requirement of increased oxygen than baseline she underwent CT chest which is concerning for bilateral pneumonia. She was started on broad-spectrum antibiotics. CT abdomen pelvis was concerning for colitis though patient did not have any further episodes of diarrhea during hospitalization. She was tolerating diet well. On CT abdomen pelvis there is also concern for dilated gallbladder with the possibility of 12 mm calculus for which HIDA scan was done which was found to be normal. Patient responded well to the treatment and has been at her baseline mentation and health and oxygen supplementation for last 24 to 36 hours. She was seen by physical therapy during hospitalization who recommended home exercise program. She has been discharged in likely stable condition on oral Levaquin and Flagyl for next 5 days. She is to take Levaquin 1 time a day and Flagyl 3 times a day. Her dose of Lasix has been withheld. She is to continue taking mechanical soft diet for next 1 week and then advance gradually. Physical Exam Narrative: General: No acute distress, pleasant, AO x3 HEENT: PERRLA, pupils bilaterally equal and reactive Chest: Bilateral bronchial breath sounds all over lung melvin with occasional rhonchi and fine crackles CVS: S1-S2 regular, no murmurs, no tachycardia, no gallops, no rubs Abdomen: Soft, obese, nontender, no organomegaly, bowel sounds present but sluggish Neuro: No focal deficits, no facial deformity, moving all limbs Discharge Data Studies Completed and Pending Completed Studies During Hospitalization Category Date Time Status CT abdomen pelvis w con* [id number] Stat Cat Scan 05/17/23 11:[address] chest wo con [id number] Routine Cat Scan 05/17/23 22:26 Completed CXRP [XR chest 1V portable [id number]] Stat Exams 05/17/23 13:06 Completed NM hepatobiliary w phar* [id number] Routine Nuc Med 05/18/23 12:00 Completed Pending at discharge Category Date Time Status Blood Culture Stat Lab 05/17/23 13:31 Results Clostridioides Difficile PCR Routine Lab 05/17/23 13:08 Uncollected OVA and Parasites, Conc and PE Routine Lab 05/18/23 18:42 Received Salmonella / Shigella / Campy Routine Lab 05/18/23 18:42 Received Sputum Culture and Gram Stain Stat Lab 05/18/23 09:10 Results Radiology Impressions Chest X-Ray 05/17/23 13:06 IMPRESSION: There is chronic air trapping scarring appearance similar overall albeit with increased peribronchovascular attenuation indicative of some early peribronchial inflammation of the lung bases. CT abdomen/pelvis: IMPRESSION: 1.? Mild inflammatory stranding and induration about the RIGHT colon and hepatic flexure with submucosal enhancement suspicious for infectious or inflammatory colitis. Recommend correlation with infectious symptoms. 2.? Remainder of the colon appears normal. 3.? Mild fluid distention of the gallbladder with prominent 12 mm calculus in the gallbladder body. No gallbladder wall thickening or pericholecystic fluid. 4.? Small esophageal hernia. 5.? Small amount of fluid and airspace opacification in the RIGHT lower lobe. Recommend correlation for pneumonia. Similar appearance is seen on prior studies dating back to 2019. Tiny amount of patchy infiltrate LEFT lower lobe. Chest CT 05/17/23 22:26 IMPRESSION: Multifocal pneumonia suspected. HIDA scan: Normal uptake of radiotracer throughout the liver. Activity identified in the gallbladder at 40 minutes and well distended by 60 minutes. Activity in the proximal small bowel was seen by 15 minutes. Good washout of the radiotracer from the liver by 60 minutes. The patient then drank 8 ounces of Ensure Plus. Ejection fraction at 60 minutes was 37%. Normal GB ejection fraction is 35-75%. Post fatty meal symptoms: None. IMPRESSION: 1.? Normal HIDA scan. 2.? Low normal gallbladder ejection fraction. Laboratory Results WBC 6.97 10^3/uL (3.29-11.43) 05/20/23 04:08 RBC 3.46 10^6/uL (3.85-5.65) L 05/20/23 04:08 Hgb 9.10 g/dL (11.27-16.99) L 05/20/23 04:08 Hct 30.1 % (36-47) L 05/20/23 04:08 MCV 87.0 fl (85-98) 05/20/23 04:08 MCH 26.3 pg (27-33) L 05/20/23 04:08 MCHC 30.2 g/dL (30-55) 05/20/23 04:08 RDW 15.0 % (12.1-15.1) 05/20/23 04:08 Plt Count 143 10^3/cmm (157-399) L 05/20/23 04:08 MPV 10.8 fL (7.4-10.4) H 05/20/23 04:08 Neut % (Auto) 75.6 % 05/20/23 04:08 Lymph % (Auto) 10.3 % 05/20/23 04:08 Cross % (Auto) 9.3 % 05/20/23 04:08 Eos % (Auto) 3.9 % 05/20/23 04:08 Baso % (Auto) 0.3 % 05/20/23 04:08 Neut # (Auto) 5.27 10^3/uL (1.8-7.7) 05/20/23 04:08 Lymph # (Auto) 0.7 10^3/uL (0.8-4.8) L 05/20/23 04:08 Cross # (Auto) 0.7 10^3/uL (0.2-0.9) 05/20/23 04:08 Eos # (Auto) 0.3 10^3/uL (0.0-0.8) 05/20/23 04:08 Baso # (Auto) 0.0 10^3/uL (0.0-0.1) 05/20/23 04:08 Nucleated RBC % (auto) 0 % 05/20/23 04:08 Nucleated RBCs # 0.0 /100WBC 05/20/23 04:08 Sodium 141 mmol/L (136-145) 05/20/23 04:08 Potassium 3.5 mmol/L (3.5-5.1) 05/20/23 04:08 Chloride 106 mmol/L (98-107) 05/20/23 04:08 Carbon Dioxide 27 mmol/L (22-29) 05/20/23 04:08 Anion Gap 11.5 (5-19) 05/20/23 04:08 BUN 15 mg/dL (8-23) 05/20/23 04:08 Creatinine 1.3 mg/dL (0.5-0.9) H 05/20/23 04:08 GFR Calculation Not Reportable 05/20/23 04:08 Glucose 89 mg/dL (65-115) 05/20/23 04:08 Estimat Average Glucose 117 05/18/23 04:10 Hemoglobin A1c 5.7 % (4.0-6.0) 05/18/23 04:10 Calculated Osmolality 292 mOsm/kg (285-295) 05/20/23 04:08 Calcium 7.7 mg/dL (8.5-10.5) L 05/20/23 04:08 Phosphorus 2.6 mg/dL (2.5-4.5) 05/18/23 04:10 Magnesium 1.9 mg/dL (1.7-2.3) 05/18/23 04:10 Iron 29 ug/dL (37-145) L 05/17/23 11:10 TIBC 262 mcg/dl 05/17/23 11:10 % Saturation 11.0 % (20-50) L 05/17/23 11:10 Unsat Iron Binding 233 ug/dL (112-347) 05/17/23 11:10 Total Bilirubin 0.5 mg/dL (0.15-1.2) 05/20/23 04:08 AST 15 U/L (0-32) 05/20/23 04:08 ALT 9 U/L (0-33) 05/20/23 04:08 Alkaline Phosphatase 63 U/L (35-105) 05/20/23 04:08 Total Protein 4.9 g/dL (6.6-8.7) L 05/20/23 04:08 Albumin 2.5 g/dL (3.5-5.2) L 05/20/23 04:08 Globulin 2.4 g/dL (1.3-4.6) 05/20/23 04:08 Triglycerides 64 mg/dL (0-150) 05/18/23 04:10 Cholesterol 88 mg/dL (0-200) 05/18/23 04:10 LDL Cholesterol, Calc 30 mg/dL (50-129) L 05/18/23 04:10 HDL Cholesterol 45 mg/dL (60-100) L 05/18/23 04:10 LDL/HDL Ratio 0.67 RATIO (0.00-3.22) 05/18/23 04:10 Cholesterol/HDL Ratio 1.96 mg/dL (0.0-4.40) 05/18/23 04:10 Lipase 12 U/L (13-60) L 05/17/23 11:10 Vitamin B12 228 pg/mL (232-1245) L 05/17/23 11:10 Folate < 20.0 ng/mL (4.8-37.3) 05/18/23 04:10 Procalcitonin 0.48 ng/mL (0-0.5) 05/17/23 11:10 TSH 1.29 uIU/mL (0.27-4.20) 05/17/23 11:10 Urine Color Yellow (Yellow) 05/17/23 12:16 Urine Appearance Clear (CLEAR) 05/17/23 12:16 Urine pH 5 (5-7) 05/17/23 12:16 Ur Specific [place] 1.010 (1.005-1.030) 05/17/23 12:16 Urine Protein Trace (Negative) 05/17/23 12:16 Urine Glucose (UA) Norm (Normal) 05/17/23 12:16 Urine Ketones Negative (Negative) 05/17/23 12:16 Urine Blood Neg (Negative) 05/17/23 12:16 Urine Nitrate Negative (Negative) 05/17/23 12:16 Urine Bilirubin 1+ (Negative) H 05/17/23 12:16 Urine Urobilinogen 1 mg/dL (Negative) H 05/17/23 12:16 Ur Leukocyte Esterase Trace (Negative) H 05/17/23 12:16 Urine RBC 0-4 /hpf (0-2) H 05/17/23 12:16 Urine WBC 0-4 /hpf (0-5) H 05/17/23 12:16 Ur Squamous Epith Cells 0-4 /hpf (0-5) H 05/17/23 12:16 Amorphous Sediment Not Reportable 05/17/23 12:16 Urine Bacteria None /hpf (NONE) 05/17/23 12:16 Urine Mucus 4+ /hpf 05/17/23 12:16 Nasal Influ A H1 2008 PCR Not detected (NOT DETECT) 05/18/23 14:07 Adenovirus (PCR) Not detected (NOT DETECT) 05/18/23 14:07 C. pneumoniae DNA (PCR) Not detected (NOT DETECT) 05/18/23 14:07 Coronavirus 229E (PCR) Not detected (NOT DETECT) 05/18/23 14:07 Human Metapneumovir PCR Not detected (NOT DETECT) 05/18/23 14:07 Influenza A (H1) PCR Not detected (NOT DETECT) 05/18/23 14:07 Influenza A (H3) PCR Not detected (NOT DETECT) 05/18/23 14:07 Influenza Type A (PCR) Not detected (NOT DETECT) 05/18/23 14:07 Influenza Type B (PCR) Not detected (NOT DETECT) 05/18/23 14:07 M. pneumoniae (PCR) Not detected (NOT DETECT) 05/18/23 14:07 Parainfluenza 1 (PCR) Not detected (NOT DETECT) 05/18/23 14:07 Parainfluenza 2 (PCR) Not detected (NOT DETECT) 05/18/23 14:07 Parainfluenza 3 (PCR) Not detected (NOT DETECT) 05/18/23 14:07 Parainfluenza 4 (PCR) Not detected (NOT DETECT) 05/18/23 14:07 RSV Type A (PCR) Not detected (NOT DETECT) 05/18/23 14:07 RSV Type B (PCR) Not detected (NOT DETECT) 05/18/23 14:07 Entero/Rhino (PCR) Not detected (NOT DETECT) 05/18/23 14:07 SARS-CoV-2 (PCR) Not detected (NOT DETECT) 05/18/23 14:07 SARS-CoV-2 Ag (Rapid) negative (Negative) 05/17/23 11:31 MRSA (PCR) Not detected (NOT DETECTED) 05/18/23 07:12 Misc Test Reference Cancelled 05/18/23 18:42 Vitals Last Vital Signs Temp 98.2 F 05/20/23 11:03 Pulse 73 05/20/23 11:03 Resp 18 05/20/23 11:03 BP 148/75 05/20/23 11:03 Pulse Ox 96 05/20/23 11:03 O2 Del Method Nasal Cannula 05/20/23 11:03 O2 Flow Rate 4 05/20/23 08:00 Discharge Plan Discharge Patient Disposition: Home Condition: Stable Prescriptions: New cyanocobalamin (vitamin B-12) 1,000 mcg tablet 1,000 mcg PO DAILY Qty: 30 0RF levofloxacin 750 mg tablet 750 mg PO Q24H 5 Days Qty: 5 0RF metronidazole 500 mg tablet 500 mg PO Q8H 5 Days Qty: 15 0RF Continued Vitamin D2 1.25 MG tablet 1.25 mg PO Q7D Rx Instructions: (ON MONDAYS) atorvastatin 40 mg Tablet 40 mg PO DAILY gabapentin 100 mg Capsule 100 mg PO TID fluticasone propionate 50 mcg/actuation [place],Suspension 2 spray INTRANASAL DAILY metoprolol tartrate 50 mg Tablet 50 mg PO DAILY ipratropium-albuterol 0.5 mg-3 mg(2.5 mg base)/3 mL solution for nebulization 3 ml INHALATION Q6H PRN (Reason: shortness of breath or wheezing) Qty: 180 0RF fluticasone propion-salmeterol [Advair Diskus] 500-50 mcg/dose blister with device 1 inh INHALATION BID Qty: 60 0RF tiotropium bromide [Spiriva with HandiHaler] 18 mcg Capsule, W/Inhalation Device 1 cap INHALATION DAILY Eliquis 5 mg tablet 5 mg PO BID hydroxyzine HCl 25 mg tablet 25 mg PO DAILY Changed furosemide 40 mg Tablet 40 mg PO DAILY PRN (Reason: Lower limb swelling) Qty: 5 0RF Discharge Orders: Discharge Order (Routine); Ordered 05/20/23 Ordered By: Cory Gutiérrez Referrals: Fabi Prado NP [Referring] - (Please call primary care provider Monday morning to schedule a hospital follow up appointment within 1 week. ) Discharge Diet: Advance as tolerated and GI Soft Discharge Activity: Resume usual activity and Increase activity as tolerated Patient Instructions: Metronidazole (By mouth), Levofloxacin (By mouth) (Levaquin, Levaquin Leva-briseida), Vitamin B-12 (By mouth), Colitis (ED), Opioid Safety Activity Restrictions/Additional Instructions: Take GI soft diet for next 1 week and then advance gradually. Hold off on taking Lasix for next 1 week. Take Levaquin and Flagyl which are the antibiotics. Levaquin will be 1 time a day for next 5 days, Flagyl will be 3 times a day for next 5 days. Please make sure you maintain your hydration with at least 1500 cc to 2 L of liquid daily. Please follow-up with a primary care provider within next 1 week. Discharge Attestations Time Spent in Discharge Care*: greater than 30 min Specific Discharge Activities: educating patient, educating and/or supporting family/caregiver, discussing with pcp/other providers, discussing with residential case manager/social workers/dc planners, documenting/other paperwork and evaluating patient/reviewing data Status at Discharge: Cognitive status at discharge: mildly impaired cognition , Behavioral status at discharge: cooperative , Functional status at discharge: uses cane/walker , Overall status at discharge: patient is back to baseline Quality Metrics Clinical Quality Measures [ No reported AMI, CVA or VTE this stay] Coding Level of Care Code 06352 Total time (in minutes) for Discharge: 60 Diagnoses AMS (altered mental status) R41.82 Hypoxia R09.02 Community acquired pneumonia J18.9 Laterality: unspecified laterality Colitis K52.9 Gallbladder calculus K80.20 Hypertension I10 Pulmonary embolism I26.99 COPD with acute exacerbation J44.1 On home oxygen therapy Z99.81 CKD (chronic kidney disease) N18.9 Vomiting R11.10 B12 deficiency E53.8
--- NOTE | 2023-05-20 14:42 | PC.NURSE ---
IV removed at 14:40 05/20/23. Cath was intact and pt tolerated it well.
== END 2023-05-20 14:55 | disposition home or self-care (01) | DRG 391 ==
LOC: ER 13:15 → MEDSURG 14:02
PROVIDERS: Admitting Provider Student in an Organized Health Care Education/Training Program; Emergency Provider Emergency Medicine; Visit Provider Student in an Organized Health Care Education/Training Program
DX: K52.9 Noninfective gastroenteritis and colitis, unspecified (principal); J18.9 Pneumonia, unspecified organism; J44.0 Chronic obstructive pulmonary disease with (acute) lower respiratory infection; Z99.81 Dependence on supplemental oxygen; Z86.711 Personal history of pulmonary embolism; I12.9 Hypertensive chronic kidney disease with stage 1 through stage 4 chronic kidney disease, or unspecified chronic kidney disease; N18.9 Chronic kidney disease, unspecified; Z79.01 Long term (current) use of anticoagulants; Z86.718 Personal history of other venous thrombosis and embolism; G62.9 Polyneuropathy, unspecified; Z87.891 Personal history of nicotine dependence; D63.1 Anemia in chronic kidney disease; E87.6 Hypokalemia; E53.8 Deficiency of other specified B group vitamins; R41.82 Altered mental status, unspecified
CPT/HCPCS: 36415; 71045; 71250; 74177; 78227; 80053; 80061; 81001; 82607; 82746; 83036; 83540; 83550; 83630; 83690; 83735; 84100; 84145; 84443; 85025; 87040; 87045; 87070; 87177; 87205; 87209; 87426; 87427; 87449; 87486; 87581; 87633; 87641; 94640; 94664; 96365; 96367; 96372; 96375; 97110; 97161; 97530; 99285; A9537; C9113; J0744; J2185; J2405; J3420; J3490; J7030; J7040; J7626; Q9967